=== PATIENT | female | born 1945 | race Caucasian/White ===

== ENCOUNTER 2018-08-01 08:49 | Inpatient (IN) ==
[~2018-08-01 08:49] MED LIST: MORPHINE SULFATE 15 MG TABLET.SA PO PRN; ROPIVACAINE HCL/PF 100 MG, EPINEPHrine 0.2 MG, KETOROLAC TROMETHAMINE 30 MG in NORMAL S... IJ PRN; TRANEXAMIC ACID 1,000 MG in NORMAL SALINE 100 ML IV PRN; ceFAZolin SODIUM 1 GM VIAL IV PRN
[2018-08-01] MEDS: RINGER'S SOLUTION,LACTATED 1,000 ML IV PRN ×4 (09:31→23:05)
--- NOTE | 2018-08-01 09:35 | ANES ---
Anesthesia Pre Procedure Eval Vitals/Labs: Last Vital Signs Temp 36.1 C 08/01/18 09:00 Pulse 89 08/01/18 09:00 Resp 18 08/01/18 09:00 BP 142/73 08/01/18 09:00 Pulse Ox 95 08/01/18 09:00 HOME MEDICATIONS Citalopram Hydrobromide [Celexa] 10 mg PO HS 02/03/13 [Last Taken 07/31/18] Levothyroxine Sodium [Synthroid] 125 mcg PO DAILY 03/13/16 [Last Taken 07/31/18] Nitroglycerin [Nitrostat] 0.4 mg SL [id number] PRN 03/13/16 [Last Taken Unknown] cholecalciferol (vitamin D3) 10,000 unit capsule 10,000 unit PO DAILY 03/07/18 [Last Taken 07/31/18] aspirin 81 mg tablet,delayed release 81 mg PO DAILY 03/10/18 [Last Taken 07/25/18] liraglutide 0.6 mg/0.1 mL (18 mg/3 mL) subcutaneous pen injector 1.8 mg SUB-Q DAILY 03/10/18 [Last Taken 07/31/18] lorazepam 0.5 mg tablet 0.5 mg PO Q4H PRN 03/10/18 [Last Taken 07/30/18] ropinirole 0.5 mg tablet 0.5 mg PO QID tab 03/10/18 [Last Taken 07/31/18] ropinirole 1 mg tablet 1 mg PO TID 03/10/18 [Last Taken 07/31/18] Atorvastatin Calcium [Lipitor] 20 mg PO HS 07/29/18 [Last Taken 07/31/18] Metoprolol Succinate [Toprol Xl] 100 mg PO DAILY 07/29/18 [Last Taken 08/01/18] metFORMIN HCL [Metformin HCl] 500 mg PO DAILY 07/29/18 [Last Taken 07/31/18] Allergies/Adverse Reactions: Allergies Allergy/AdvReac Type Severity Reaction Status Date / Time levofloxacin [From Levaquin] AdvReac Severe Nausea Verified 08/01/18 09:00 simvastatin AdvReac Intermediate pain and Verified 08/01/18 09:00 cramping in legs codeine AdvReac Mild gi upset Verified 08/01/18 09:00 ciprofloxacin AdvReac Unknown unknown Verified 08/01/18 09:00 doxepin AdvReac Unknown unknown Verified 08/01/18 09:00 pioglitazone HCl [From Actos] AdvReac Unknown unknown Verified 08/01/18 09:00 - Planned Procedure Planned Procedure: R total knee Medication List Reviewed:: Yes Allergies Verified: Yes Medical History (Last Reviewed 08/01/18 @ 09:32 by Shoaib Meehan CRNA) Abdominal pain Onset Date: Unknown Arthritis Onset Date: Unknown Asthma Onset Date: Unknown Bronchitis Onset Date: Unknown COPD (chronic obstructive pulmonary disease) Onset Date: 06/02/10 mild- Dr. Donahue Chest pain Onset Date: Unknown Chondromalacia of patella Onset Date: 05/27/12 Cough Onset Date: Unknown Degenerative joint disease of knee Onset Date: 05/11/12 minimally symptomatic Depression Onset Date: Unknown Disc disorder of lumbar region Onset Date: 05/11/12 possible radiculopathy Diverticulitis Onset Date: 07/11/18 Environmental allergies Onset Date: Unknown Fibromyalgia Onset Date: Unknown Frequent infections Onset Date: Unknown Gallstones Onset Date: Unknown Irregular bowel habits Onset Date: Unknown Irregular menstrual periods Onset Date: Unknown Knee pain, right Onset Date: ~2017 Measles Onset Date: Unknown Medial meniscus tear Onset Date: 05/24/12 Mumps Onset Date: Unknown Nervousness Onset Date: Unknown Partial tear of rotator cuff Onset Date: 09/13/12 rt Pes anserine bursitis Onset Date: ~2017 Pneumonia Onset Date: Unknown Sexual dysfunction Onset Date: Unknown Shortness of breath Onset Date: Unknown Stroke Onset Date: 02/2006 possible TIA Tetanus Onset Date: Unknown Trochanteric bursitis, unspecified hip Onset Date: 05/11/12 Ulcer Onset Date: Unknown Surgical History (Last Reviewed 08/01/18 @ 09:32 by Shoaib Meehan CRNA) tail bone removed Cataract extraction status Onset Date: 12/26/12 Dr. Bob Coccygectomy Onset Date: 08/2015 H/O colonoscopy Onset Date: [id number] hyperplastic poly @ transerse colon @ benign hyperplastic polyp @ 30 cm/ -rectal polyp benign hyperplastic polyp & @ 20cm benign polypoid mucosal hyperplasia H/O: hysterectomy Onset Date: 07/1983 History of Bradley fundoplication Onset Date: 12/27/08 History of cholecystectomy Onset Date: 1966 History of esophagogastroduodenoscopy (EGD) Onset Date: 08/29/08 Dr. [id number] chronic inflammation- 07-benign gastric antrum mucosa,benign duodenum mucosa, benign colonic mucosa, 06-mild gastro reflux, benign gastroesophageal tissue, mild chronic antrum gastritis, mild chronic gastritis- also had EGD w/ bx in 11/23 & 10/23 Knee joint replacement status Onset Date: 04/20/16 left-Dr. Stallworth S/P epidural steroid injection Onset Date: 11/01/03 Shoaib Meehan S/P gastric surgery Onset Date: 09/2014 S/P left knee arthroscopy Onset Date: 06/06/12 Family History (Last Reviewed 08/01/18 @ 09:33 by Shoaib Meehan, PRICE ACCURACY SUPERVISOR) Father Suicide Mother Heart disease Sister DVT (deep venous thrombosis), Onset Age: 36 Brother Diabetes Heart disease two brothers with heart disease, one with transplant Sister Blood clotting disorder Lupus - Family Anesthesia History Family History:: no untoward family reactions to anesthesia, no familial bleeding tendencies, no family history of clotting disorders - personal history of nausea, S/P Andres, "cant throw up", no family history of premature - Airway/Neck/Teeth Denture Type: Full upper, Full lower Mallampatti Score: 2 Thyromental (T-M) distance: > 6 cm Mandibulo Hyoid distance: > 3 cm - Respiratory Respiratory History: asthma - no recent issues Respiratory Physical: lungs clear Smoking Status: Never smoker Discussed smoking cessation including day of surgery: No Sleep Apnea currently treated: No Sleep Apnea by current assessment: No - Cardiovascular Cardiac History: arrhythmia - occassional palpitations, CAD, hypertension Tolerate Activity: Fair Heart Sounds: S1 & S2, Regular - Anesthesia Assessment and Plan ASA Class: PS, III Anesthesia Type Plan: Block - for post op pain relief, Spinal Planned difficult intubation/equipment available: No
[2018-08-01] MEDS ORDERED: diphenhydrAMINE HCL 50 MG/ML VIAL IV PRN (12:53)
[2018-08-01] MEDS ORDERED: ZOLPIDEM TARTRATE 5 MG TABLET PO PRN (12:53)
[2018-08-01] MEDS ORDERED: MAGNESIUM HYDROXIDE 30 ML UDC PO PRN (12:53)
[2018-08-01] MEDS ORDERED: oxyCODONE HCL/ACETAMINOPHEN 1 TAB TABLET PO PRN (12:53)
[2018-08-01] MEDS ORDERED: MORPHINE SULFATE 4 MG/ML SYRG IV PRN (12:53)
[2018-08-01] MEDS ORDERED: MAG HYDROX/ALUMINUM HYD/SIMETH 30 ML UDC PO PRN (12:53)
[2018-08-01] MEDS ORDERED: ACETAMINOPHEN 500 MG TABLET PO PRN (12:53)
[2018-08-01] MEDS ORDERED: LORazepam 0.5 MG TABLET PO PRN (12:55)
[2018-08-01] MEDS ORDERED: NITROGLYCERIN 0.4 MG/TAB BTL SL PRN (12:55)
--- NOTE | 2018-08-01 12:58 | OR ---
Operative Report - Dictated Report Narrative: Date: 08/01/2018 Preoperative diagnosis: Right Knee degenerative joint disease. Postoperative diagnosis: Right Knee degenerative joint disease. Procedure: Right Total knee arthroplasty. Surgeon: Arnold Stallworth M.D. Career And Guidance Counselor: Heath Herrera PA-C (provided and essential set of skilled, educated hands that assisted with transfer, positioning, prepping, draping, manipulation, retraction, placement of jigs, injection, insertion of implants, irrigation, closure wounds, and dressings all of which could not be performed by the available surgical crew) Anesthesia: Spinal with regional block and local periarticular joint injection. Complications: None Specimens: Bone for disposal. Estimated blood loss: Minimal. Tourniquet time: 87 Minutes at 350 millimeters of mercury. Retained implants: Depuy Attune size 6 narrow right lugged cemented posterior stabilized femoral component. Size 4 fixed-bearing cemented tibial platform. 6 by 5 millimeter posterior stabilized cross-linked tibial insert. 38 millimeter medialized patella button. Indications: Mrs. Ansari is a 72-year-old female who has had long-standing right knee pain and arthrosis. This patient was followed in my clinic for period of time with significant complaints of right knee pain consistent with arthritic changes. She had failed conservative measures including, but not limited to, activity modification, passage of time, medications, and other conservative measures. Patient wished to proceed with surgical treatment. The risks, benefits, and alternatives were discussed in clinic. The risks of , blood clots, bleeding, infection, nerve/tendon blood vessel/ injury, malposition of components, intraoperative fracture, postoperative limited range of motion, persistent pain, failure of components, and need for additional procedures. Patient wished to proceed consent was obtained after answering all questions. Procedure: After marking the correct extremity on the floor, the patient was taken to the operating room. A timeout was performed. IV antibiotics consisting of Ancef were administered prior to the procedure. A regional followed by spinal anesthetic was induced by anesthesia, per my request, on the operative table with all bony prominences well-padded. Valadez catheter was placed, and a bump was placed under the operative side buttock. SCDs and HAROLDO hose were utilized on the nonoperative leg. A well-padded tourniquet was applied to the operative thigh. The operative leg was then pre-scrubbed with alcohol, prepped, and draped in a standard sterile fashion. After exsanguinating the extremity with an Esmarch bandage, the tourniquet was inflated. After marking out the anterior knee for standard incision centered over the patella, the skin was incised and dissected down to the joint retinaculum. The joint retinaculum was marked out as well as the horizontal axis of the patella, and a standard medial parapatellar arthrotomy was then made. The most proximal aspect of the quadriceps tendon and the patella tendon insertion were protected from release. A partial synovectomy was performed as well as a resection of the infrapatellar fat pad. The distal femoral fat pad proximal to the trochlea was also resected using cautery. The soft tissues were elevated off the medial aspect of the proximal tibia using a Eastman elevator ensuring that we did not transect the medial collateral ligament. Upon initial evaluation range of motion was approximately 0 degrees to 130 degrees of flexion. There were signs of advanced arthrosis in the medial and patellofemoral joint spaces. There were large marginal osteophytes which were removed with a rongeur. The knee was hyperflexed and the patella was tucked laterally. Protecting the surrounding soft tissues with Homans, an entry drill was placed down the femoral canal using Whitesides line for guidance into the entry point. The intramedullary femoral alignment ingrid was utilized in order to cut the distal femur in 5 degrees of valgus resecting 10 millimeters of bone. Next the distal femur was sized to a size 6. A posterior referencing guide was utilized to place the distal femoral cutting block in 3 degrees of external rotation. This was pinned into place. The rotation was confirmed both visually and based on anatomic landmarks. The 4 in 1 cutting jig of the appropriate size was utilized in order to make all bony cuts. The angle wing was used to ensure no notching. Retractors were utilized in order to protect surrounding soft tissues. This cut did not result in any excessive notching. We then cut the box centered over the distal femur. This allowed for resection of the anterior and posterior cruciate ligaments. I then turned my attention to the preparation of the tibia. Using an extra medullary tibial alignment ingrid, 5 millimeters of bone was resected off the medial articular surface. This was made perpendicular to the mechanical axis of the joint with the alignment ingrid centered over the ankle mortise. The alignment ingrid was checked and was noted to be parallel to the mec hanical axis, centered over the medial one third of the tibial tubercle, paralleling the anterior surface of the tibia. We then turned our attention to the remaining meniscus and soft tissues. These were removed while protecting the surrounding ligaments and soft tissues. The marginal osteophytes off the anterior, posterior, medial, lateral aspects of the femur and tibia were removed. The tibia was sized out to a size 4. Next the tibia was drilled and punched in an externally rotated position. Next the trial femur and a series of tibial inserts were utilized in order to allow for full extension and maximal flexion. It was found that a 5 millimeter insert gave the best range of motion and stability at multiple flexion points as well as at full extension there was less than 2 mm of gapping both medially and laterally. There is minimal anterior translation with the knee at 90 degrees of flexion and no signs of being able to dislocate the knee. The patella was then prepared. The initial thickness was 23 millimeters. This was reamed down to 13 millimeters parallel to the anterior surface of the patella. It was sized out to a size 38 medialized patella button. This was then drilled and trialed. Without any medial restraint the patella tracked appropriately and did not sublux or dislocate. At this point, it was felt these were the appropriate sized implants, and all trials were removed. The standard periarticular joint injection consisting of ropivacaine, Toradol, and epinephrine were injected into the periarticular joint tissues. The bony surfaces were thoroughly irrigated with a pulsatile-suction saline irrigation device. A bone plug from the prior resected anterior chamfer cut was placed into the drill hole at the distal femur. The bony surfaces were then dried in preparation for placement of the implants. The cement was vacuum mixed per the logistics administrator's instructions. The cement was placed on the dry bony surfaces and posterior aspect of the implants. The implants were impacted into place, removing all extruded cement. At this point anesthesia administered tranexamic acid per protocol intravenously. The knee was placed in extension with axial loading with the trial insert while the cement cured. Once the cement cured, all remaining extruded cement was removed. The knee was placed through a range of motion with the trial insert to ensure appropriate range of motion and stability. Final range of motion was approximately 0 to 130 degrees. The knee was again thoroughly irrigated with pulsatile saline lavage. The final polyethylene insert was then impacted into place ensuring no retained soft tissues. The remaining periarticular joint injection was injected. A medium Hemovac drain was placed exiting superior laterally. The knee was then placed over a triangle and the arthrotomy was closed with interrupted #1 Vicryl after thoroughly irrigating the joint. The deep and subcutaneous tissues were closed with interrupted 0 and 3-0 Vicryl respectively. Skin was closed with a running subcutaneous 3-0 Monocryl and Prineo Dermabond dressing. 4 x 4's, Sof-Rol, and a full leg Jerome wrap were applied. All sponge, needle, blade, and instrument counts were correct prior to closing the wounds. Postoperative condition: The patient was awoken and transferred to the postanesthesia care unit in stable condition. Plan is to be admitted to the inpatient medical/surgical floor postoperatively for 24 hours of IV antibiotics, physical therapy, occupational therapy, and medical comanagement. Patient will be weightbearing as tolerated with range of motion as tolerated. DVT prophylaxis will be with SCDs, HAROLDO hose, and pharmacological anticoagulation. Anticipated hospital stay is approximately 1-3 days.
--- NOTE | 2018-08-01 13:12 | ANES ---
Anesthesia Procedure Note Procedure Note: ANESTHESIA PROCEDURE NOTE Date of Procedure: 08/01/2018 Time of procedure: 1055. Performed by: Shoaib Meehan CRNA, MSN Secretary Specialist: Destini Braden RN. Preprocedure diagnosis: Post right total knee arthroplasty. Post procedure diagnosis: Same. Procedure: Right Adductor Canal Block. Indications: Post right total knee arthroplasty pain relief. Findings: See below. Details of the procedure: The patient was brought to OR #2 and placed in supine position. The patient's right femoral area to the knee was prepped with chlorhexidine and using ultrasound guidance the right femoral artery wasidentified at approximately the proximal one third femur. Under ultrasound guidance the saphenous nerve was approached with visualization of a 4 inch shielded block needle approaching the adductor canal just under the sartorius muscle. Once saphenous nerve was identified with proximity to the needle tip, the saphenous nerve was surrounded with 20 mL bupivacaine 0.25% with 1-200,000 epinephrine. Please see radiology/ultrasound report for details and retained images of the procedure. EBL: 0 Fluids: N/A. Specimen: N/A. Post procedure condition: The patient tolerated the procedure well. No complications were noted. Thank you for this consultation. Shoaib Meehan CRNA, MSN
--- NOTE | 2018-08-01 13:12 | ANES ---
Post Anesthesia Discharge - Transfer of Care Transfer of Care handoff given to nurse: Yes - Discharge from PACU Discharge from PACU when meets criteria: Yes - Comfortable in PACU.
[2018-08-01] MEDS: rOPINIRole HCL 1 MG TABLET PO SCH ×2 (14:10→16:24)
[2018-08-01] MEDS: rOPINIRole HCL 0.5 MG TABLET PO SCH ×3 (14:10→21:22)
[2018-08-01] MEDS: ceFAZolin SODIUM 1 GM in DEXTROSE 5 % IN WATER 100 ML IV SCH ×4 (14:11→21:18)
[2018-08-01] MEDS: KETOROLAC TROMETHAMINE 15 MG/ML VIAL IV SCH ×2 (14:11→18:56)
[2018-08-01] MEDS ORDERED: MORPHINE SULFATE 2 MG/ML DISP.SYRIN IV PRN (14:15)
[2018-08-01] MEDS: ONDANSETRON HCL/PF 2 MG/ML VIAL IV PRN (15:35)
--- NOTE | 2018-08-01 15:43 | ANES ---
Post Anesthesia Assessment - Vital Signs Vitals: Last Vital Signs Temp 36.8 C 08/01/18 13:44 Pulse 81 08/01/18 15:29 Resp 17 08/01/18 15:29 BP 141/73 08/01/18 15:29 Pulse Ox 96 08/01/18 15:29 Airway Patency: Normal - Mental Status Level Of Consciousness: Awake, Alert, Appropriate - Pain Level Pain Score: 0 - N/V Assessment Nausea/Vomiting Presence: None Dehydration:: No
[2018-08-01] MEDS ORDERED: ROSUVASTATIN CALCIUM 10 MG TABLET PO SCH (21:00)
[2018-08-01] MEDS ORDERED: SENNOSIDES/DOCUSATE SODIUM 1 TAB TABLET PO SCH (21:00)
[2018-08-01] MEDS ORDERED: CITALOPRAM HYDROBROMIDE 10 MG TABLET PO SCH (21:00)
[2018-08-01] MEDS: MORPHINE SULFATE 15 MG TABLET.SA PO SCH (21:15)
[2018-08-02] MEDS: KETOROLAC TROMETHAMINE 15 MG/ML VIAL IV SCH ×3 (01:29→14:05)
[2018-08-02] MEDS: ceFAZolin SODIUM 1 GM in DEXTROSE 5 % IN WATER 100 ML IV SCH ×2 (04:14)
[2018-08-02 05:39] LABS: Hematocrit 35.1 % (37.0-47.0); Hemoglobin 11.3 gm/dL (12.5-16.0); Mean Cell Volume 93.9 fl (78-100); Mean Corpuscular Hemoglobin 30.2 pg (27-31); Mean Corpuscular Hgb Conc 32.2 g/dl (32-36); Mean Platelet Volume 11.1 fl (8-12.5); Platelet Count 211 K/mm3 (150-450); Red Blood Count 3.74 M/mm3 (4.2-5.4); Red Cell Distribution Width 12.1 % (11.5-14.0)
[2018-08-02 05:54] LABS: Anion Gap 11.4 mmol/L (6.8-13.8); BUN/Creatinine Ratio 27.2 (9.0-21.6); Calcium * 8.2 mg/dL (7.9-10.9); Estimated Creat Clear 38.6; Potassium 4.4 mmol/L (3.4-4.6)
[2018-08-02] MEDS ORDERED: LEVOTHYROXINE SODIUM 125 MCG TABLET PO SCH (07:00)
[2018-08-02] MEDS ORDERED: CHOLECALCIFEROL 5,000 UNIT TABLET PO SCH (09:00)
[2018-08-02] MEDS ORDERED: metFORMIN HCL 500 MG TABLET PO SCH (09:00)
[2018-08-02] MEDS ORDERED: METOPROLOL SUCCINATE 100 MG TABLET.SA PO SCH (09:00)
[2018-08-02] MEDS: MORPHINE SULFATE 15 MG TABLET.SA PO SCH (09:16)
[2018-08-02] MEDS: rOPINIRole HCL 1 MG TABLET PO SCH ×2 (09:17→14:05)
[2018-08-02] MEDS: rOPINIRole HCL 0.5 MG TABLET PO SCH ×2 (09:17→14:05)
[2018-08-02] MEDS ORDERED: ENOXAPARIN SODIUM 40 MG/0.4 ML SYRG SC SCH (11:53)
[2018-08-02] MEDS: ONDANSETRON HCL/PF 2 MG/ML VIAL IV PRN (12:10)
--- NOTE | 2018-08-02 12:11 | DS ---
(1) Status post total right knee replacement Problem: Acute (2) Acute blood loss anemia Problem: Acute (3) Anxiety Problem: Chronic (4) Back pain with radiation Problem: Chronic (5) Asthma Problem: Chronic (6) COPD (chronic obstructive pulmonary disease) Problem: Chronic (7) Depression Problem: Chronic (8) Diabetes mellitus Problem: Chronic (9) HLD (hyperlipidemia) Problem: Chronic (10) HTN (hypertension) Problem: Chronic Qualifiers: Description of Stay: Mrs. Ansari was admitted to the floor after undergoing right total knee arthrop lasty. Tolerated this well. Was admitted to the floor postoperatively for 24 hours of IV antibiotics, pain control, medical comanagement, and occupational and physical therapy. OT and PT were consulted to assist with activities of daily living and ambulation. Was made weightbearing as tolerated with range of motion as tolerated. Pain was initially controlled with IV regimen. This was transitioned to oral once tolerating a by mouth intake. Was resumed on home diet and medications. Had a Valadez catheter inserted and the operating room which was discontinued on postoperative day 1. A drain was placed intraoperatively into the knee which was discontinued on postoperative day 1. Lovenox SCD and HAROLDO hose were utilized for DVT prophylaxis. Vital signs remained stable to the hospital course. Serial labs were obtained which showed a final hemoglobin of 11.3 grams. BMP was reviewed and was stable. Physical examination throughout the hospital course showed an extremity that had sensa tion that was intact to light touch, palpable pulses, a benign wound, motor intact to the toes, ankle, and knee. Knee range of motion was approximately 5 degrees to 60 degrees. Once an oral pain regimen was tolerated and physical therapy goals were met, it was felt that they were stable for discharge to home. Instructions: Continue with weightbearing as tolerated and range of motion as tolerated. It is okay to shower and get the wound wet as long as there is no drainage from the wound. Do not bathe or soak the wound. If there is any drainage from the wound keep the wound clean and dry and cover with dry gauze and tape. Change every 2- 3 days as needed if there is any drainage. Cover wound while showering if there is any drainage. Continue with physical therapy. Resume home diet. Report any fever over 101.5 Fahrenheit, uncontrolled pain, increased drainage, foul odor of drainage, new or increased calf pain or shortness of breath, or any other significant complaints. A 325mg dialy aspirin will be started after finishing anticoagulation if not allergic. Continue with HAROLDO hose on the operative extremity until instructed otherwise. No driving until instructed otherwise. Follow up in approximately 10-14 days. Procedures Performed: see notes below List Procedures: Right total knee arthroplasty Results and Findings: Lab Pending Results 08/02/18 05:34: WBC 8.0, RBC 3.74 L, Hgb 11.3 L, Hct 35.1 L, MCV 93.9, MCH 30.2, MCHC 32.2, RDW 12.1, Plt Count 211, MPV 11.1 08/02/18 05:34: Sodium 139, Plasma Sodium 140, Potassium 4.4, Chloride 104, Carbon Dioxide 28.0, Anion Gap 11.4, BUN 28 H, Creatinine 1.03, Est GFR (Non-Af Amer) 56 L, BUN/Creatinine Ratio 27.2 H, Random Glucose 159 H, Calcium 8.2 Disposition: Home self-care Condition: Good Discharge Activity: Activity as tolerated, Weight bearing Referrals: Shahrzad Devries, [employer] [Primary Care Provider] - Additional Patient Instructions (free text): Phyisical Therapy outpatient at [facility] Rehab department on Wednesday08/03/18 @ 12:45 pm. Follow up Orthopedic appointment with Dr Stallworth Naz at 08/23/18 @ 9:45 am. Prescriptions (Any new or edited meds): Enoxaparin Sodium [Lovenox] 40 mg SC Q24H #7 disp.syrin Morphine Sulfate [Ms Contin] 15 mg PO Q12H #14 tablet.sa oxyCODONE HCL/ACETAMINOPHEN [Percocet 5 MG/325 MG] 2 tab PO Q4H PRN #60 tab PRN Reason: Moderate Pain (Pain Scale 4-6) Sennosides/Docusate Sodium [Senokot-S] 2 tab PO HS #60 tab Complete Home Medications List: Complete Home Medication List: Citalopram Hydrobromide [Celexa] 10 mg PO HS 02/03/13 Levothyroxine Sodium [Synthroid] 125 mcg PO DAILY 03/13/16 Nitroglycerin [Nitrostat] 0.4 mg SL [id number] PRN 09/23/16 cholecalciferol (vitamin D3) 10,000 unit capsule 10,000 unit PO DAILY 03/07/18 liraglutide 0.6 mg/0.1 mL (18 mg/3 mL) subcutaneous pen injector 1.8 mg SUB-Q DAILY 03/10/18 lorazepam 0.5 mg tablet 0.5 mg PO Q4H PRN 03/10/18 ropinirole 0.5 mg tablet 0.5 mg PO QID tab 03/10/18 ropinirole 1 mg tablet 1 mg PO TID 03/10/18 Atorvastatin Calcium [Lipitor] 20 mg PO HS 07/29/18 Metoprolol Succinate [Toprol Xl] 100 mg PO DAILY 07/29/18 metFORMIN HCL [Metformin HCl] 500 mg PO DAILY 07/29/18 Calcium Carbonate [Calcium] 500 mg PO DAILY 08/01/18 Docusate Sodium 100 mg PO DAILY PRN 08/01/18 Multivitamin [One-Daily Multi-Vitamin] 1 ea PO DAILY 08/01/18 Enoxaparin Sodium [Lovenox] 40 mg SC Q24H #7 disp.syrin 08/02/18 Morphine Sulfate [Ms Contin] 15 mg PO Q12H #14 tablet.sa 08/02/18 Sennosides/Docusate Sodium [Senokot-S] 2 tab PO HS #60 tab 08/02/18 oxyCODONE HCL/ACETAMINOPHEN [Percocet 5 MG/325 MG] 2 tab PO Q4H PRN #60 tab 08/02/18 Amb Orders for Discharge: PT Evaluation and Treatment* Facility: [facility], Location: Rehabilitation Services
[2018-08-02 14:52] VITALS: BP 143/70
== END 2018-08-02 15:05 | disposition home or self-care (01) | DRG 470 ==
LOC: MS 08:49 → EDSTATUS 10:45
PROVIDERS: ADMIT Orthopaedic Surgery; ATTEND Orthopaedic Surgery
CPT/HCPCS: 36415; 73560; 80048; 85027; 97110; 97116; 97161; 97166; J2405

== ENCOUNTER 2018-10-21 18:30 | Observation (INO) ==
[2018-10-21] MEDS ORDERED: ALBUTEROL SULFATE/IPRATROPIUM 3 ML NEBU IH ONE (18:38)
--- NOTE | 2018-10-21 18:45 | ERNOTE ---
Dyspnea - Date Date of Service: 10/21/18 - General Presenting Symptoms: shortness of breath, difficulty of breathing, wheezing Time Seen by Provider: 10/21/18 18:34 Source: patient Exam Limitations: no limitations - Immun/Allergies/Home Medications Immunizations: IMMUNIZATION HX Immunizations Up to Date Yes History of Influenza Vaccine No Hx Pneumococcal Vaccination No Allergies/Adverse Reactions: Allergies levofloxacin [From Levaquin] Adverse Reaction (Severe, Verified 10/21/18 18:42) Nausea simvastatin Adverse Reaction (Intermediate, Verified 10/21/18 18:42) pain and cramping in legs codeine Adverse Reaction (Mild, Verified 10/21/18 18:42) gi upset ciprofloxacin Adverse Reaction (Unknown, Verified 10/21/18 18:42) unknown patient does not recall doxepin Adverse Reaction (Unknown, Verified 10/21/18 18:42) unknown patient does not recall reaction pioglitazone HCl [From Actos] Adverse Reaction (Unknown, Verified 10/21/18 18:42) unknown patient doesn't recall Home Medications: HOME MEDICATIONS Citalopram Hydrobromide [Celexa] 10 mg PO HS 02/03/13 [Last Taken 07/31/18] Levothyroxine Sodium [Synthroid] 125 mcg PO DAILY 03/13/16 [Last Taken 07/31/18] Nitroglycerin [Nitrostat] 0.4 mg SL [id number] PRN 03/13/16 [Last Taken Unknown] cholecalciferol (vitamin D3) 10,000 unit capsule 10,000 unit PO DAILY 03/07/18 [Last Taken 07/31/18] liraglutide 0.6 mg/0.1 mL (18 mg/3 mL) subcutaneous pen injector 1.8 mg SUB-Q DAILY 03/10/18 [Last Taken 07/31/18] lorazepam 0.5 mg tablet 0.5 mg PO Q4H PRN 03/10/18 [Last Taken 07/30/18] ropinirole 0.5 mg tablet 0.5 mg PO QID tab 03/10/18 [Last Taken 07/31/18] ropinirole 1 mg tablet 1 mg PO TID 03/10/18 [Last Taken 07/31/18] Atorvastatin Calcium [Lipitor] 20 mg PO HS 07/29/18 [Last Taken 07/31/18] Metoprolol Succinate [Toprol Xl] 100 mg PO DAILY 07/29/18 [Last Taken 08/01/18] metFORMIN HCL [Metformin HCl] 500 mg PO DAILY 07/29/18 [Last Taken 07/31/18] Calcium Carbonate [Calcium] 500 mg PO DAILY 08/01/18 [Last Taken Unknown] Multivitamin [One-Daily Multi-Vitamin] 1 ea PO DAILY 08/01/18 [Last Taken Unknown] albuterol sulfate HFA 90 mcg/actuation aerosol inhaler 2 puff INHALATION Q6H PRN #8.5 g 10/20/18 [Last Taken Unknown] azithromycin 250 mg tablet See Rx Instructions PO .COMPLEX #6 tab 10/20/18 [Last Taken Unknown] compressor, for nebulizer See Dose Instructions .ROUTE .MEDSUPPLY #1 ea 10/20/18 [Last Taken Unknown] ipratropium-albuterol 0.5 mg-3 mg(2.5 mg base)/3 mL nebulization soln 3 ml IH QID PRN #90 ml 10/20/18 [Last Taken 10/21/18 17:30] nebulizer accessories [facility] See Dose Instructions .ROUTE .MEDSUPPLY #1 ea 10/20/18 [Last Taken Unknown] traMADol HCL [Tramadol HCl] 1 - 2 tab PO Q12H PRN 10/21/18 [Last Taken Unknown] traMADol HCL [Tramadol HCl] 1 - 2 tab PO Q8H PRN 10/21/18 [Last Taken Unknown] - Pain Score Pain Score #1 Pain Score: 4 - History of Present Illness Narrative: The patient is a 73 year old female who presents for dyspnea which has been present for 3 days. There are associated symptoms of diffuse anterior chest discomfort, fever and productive cough. The patient reports anterior chest pain, 4/10. There are no alleviating factors. There are aggravating factors. Previous treatments have included: Duoneb and Z-Peng without improvement. The past medical history includes: HTN, COPD, depression, HLD, asthma, DM, anxiety, arthritis, fibromyalgia and TIA. The social history is positive for former smoker. The patient has had no ill contacts. Patient was seen at [facility] yesterday and started on ZPak for bilateral pneumonia with clinical dx. Patient states that symptoms have not improved with prescribed treatment. Review of Systems - Review of Systems Constitutional: Present: fever, fatigue, malaise EYE: Present: no symptoms reported ENT: Present: no symptoms reported. Absent: ear pain, nasal drainage, sore throat Respiratory: Present: shortness of breath, cough, wheezing Cardiology: Present: chest pain Gastrointestinal/Abdominal: Present: nausea, diarrhea, eating less. Absent: vomiting, abdominal pain, drinking less Genitourinary: Present: no symptoms reported. Absent: dysuria, decreased urinary output Musculoskeletal: Present: no symptoms reported Skin: Present: no symptoms reported. Absent: rash All Other Systems: All systems neg except as marked Medical History (Updated 10/20/18 @ 17:12 by Love Sherman LPN) HTN (hypertension) (Chronic) COPD (chronic obstructive pulmonary disease) (Chronic) Depression (Chronic) HLD (hyperlipidemia) (Chronic) Asthma (Chronic) Diabetes mellitus (Chronic) Diverticulitis large intestine (Acute) Anxiety (Chronic) Back pain with radiation (Chronic) Diabetic acidosis, type II (Acute) Abdominal pain Onset Date: Unknown Arthritis Onset Date: Unknown Asthma Onset Date: Unknown Bronchitis Onset Date: Unknown COPD (chronic obstructive pulmonary disease) Onset Date: 06/02/10 dago- Dr. Donahue Chest pain Onset Date: Unknown Chondromalacia of patella Onset Date: 05/27/12 Cough Onset Date: Unknown Degenerative joint disease of knee Onset Date: 05/11/12 minimally symptomatic Depression Onset Date: Unknown Diabetes Disc disorder of lumbar region Onset Date: 05/11/12 possible radiculopathy Diverticulitis Onset Date: 07/11/18 Environmental allergies Onset Date: Unknown Fibromyalgia Onset Date: Unknown Frequent infections Onset Date: Unknown Gallstones Onset Date: Unknown Irregular bowel habits Onset Date: Unknown Irregular menstrual periods Onset Date: Unknown Knee pain, right Onset Date: ~2017 Measles Onset Date: Unknown Medial meniscus tear Onset Date: 05/24/12 Mumps Onset Date: Unknown Nervousness Onset Date: Unknown Partial tear of rotator cuff Onset Date: 09/13/12 rt Pes anserine bursitis Onset Date: ~2018 Pneumonia Onset Date: Unknown Sexual dysfunction Onset Date: Unknown Shortness of breath Onset Date: Unknown Stroke Onset Date: 02/2006 possible TIA Tetanus Onset Date: Unknown Trochanteric bursitis, unspecified hip Onset Date: 05/11/12 Ulcer Onset Date: Unknown Surgical History: Surgical History (Updated 10/20/18 @ 17:12 by Love Sherman LPN) Status post total left knee replacement (Acute) Status post total right knee replacement (Chronic) [place] 08/01/18 Cataract extraction status Onset Date: 12/26/12 Dr. Bob Coccygectomy Onset Date: 08/2015 H/O colonoscopy Onset Date: 2010 [id number] hyperplastic poly @ transerse colon @ benign hyperplastic polyp @ 30 cm/ 07-rectal polyp benign hyperplastic polyp & @ 20cm benign po lypoid mucosal hyperplasia H/O: hysterectomy Onset Date: 07/1983 History of Bradley fundoplication Onset Date: 12/27/08 History of cholecystectomy Onset Date: 1966 History of esophagogastroduodenoscopy (EGD) Onset Date: 08/29/08 Dr. [id number] chronic inflammation- 07-benign gastric antrum mucosa,benign duodenum mucosa, benign colonic mucosa, 06-mild gastro reflux, benign gastroesophageal tissue, mild chronic antrum gastritis, mild chronic gastritis- also had EGD w/ bx in 11/23 & 10/23 Knee joint replacement status Onset Date: 04/20/16 left-Dr. Stallworth S/P epidural steroid injection Onset Date: 11/01/03 Shoaib Mee[place] S/P gastric surgery Onset Date: 09/2014 S/P left knee arthroscopy Onset Date: 06/06/12 tail bone removed History of total knee arthroplasty Onset Date: ~08/01/18 right: Dr. Stallworth Family History: Family History (Updated 07/29/18 @ 09:41 by Lilian Garcia RN) Father Suicide Mother Heart disease Sister DVT (deep venous thrombosis), Onset Age: 36 Brother Heart disease two brothers with heart disease, one with transplant Diabetes Sister Lupus Blood clotting disorder Social History: Preferred Language Wallisian Smoking Status Never smoker Abuse History No History of abuse Psych History No pertinent hx (Last Updated 10/20/18 @ 18:02 by Jaenlle Erickson DNP) No Social History Section defined Physical Exam - Physical Exam General Appearance: Present: wd/wn, alert, moderate distress, crying - tearful, other - malaise Head Exam: Present: normal inspection Eye Exam: Normal inspection: bilateral Neck: Present: normal inspection Respiratory: Present: respiratory distress - mild, decreased breath sounds, rhonchi - diffuse, wheezing - diffuse expiratory Cardiovascular/Chest: Present: no murmur, tachycardia Gastrointestinal/Abdominal: Present: normal bowel sounds, nontender, nondistended, soft, no organomegaly Extremity Exam: Present: no edema Neurological Exam: Present: alert, oriented, normal mood/affect Skin Exam: Present: normal color, warm/dry Progress - Date and Time Seen: Date and Time: 10/21/18 20:13 Discussed case with and will admit for observation for COPD exacerbation with tachycardia, dyspnea and confusion. Family states that patient has been asking inappropriate questions and disoriented to situation at times. Will administer Azithromycin 250mg po now since patient took dose of 250mg this am. - Results and Orders Patient's Lab Results:: I have reviewed the patient's lab results. - Vital Signs Patient's Vital Signs:: I have reviewed the patient's vital signs. - EKG EKG #1 EKG: NSR EKG read: Reviewed by me - CT/Ultrasound CT/Ultrasound Narrative: Real Radiology: CTA Chest: Multifocal discoid atelectasis Negative for central PE Departure Clinical Impression: COPD with exacerbation Altered mental status Qualifiers: Altered mental status type: unspecified Qualified Code(s): R41.82 - Altered mental status, unspecified - Departure Disposition: Still a patient Condition: Fair
[2018-10-21] MEDS ORDERED: METHYLPREDNISOLONE SOD SUCC/PF 125 MG/2 ML VIAL IV ONE (18:54)
[2018-10-21 18:59] LABS: Hemoglobin 13.4 gm/dL (12.5-16.0); Mean Cell Volume 90.7 fl (78-100); Mean Corpuscular Hemoglobin 28.9 pg (27-31); Mean Corpuscular Hgb Conc 31.9 g/dl (32-36); Mean Platelet Volume 10.9 fl (8-12.5); Neutrophil # 4.1 K/mm3 (1.3-6.0); Platelet Count 282 K/mm3 (150-450); Red Blood Count 4.63 M/mm3 (4.2-5.4); Red Cell Distribution Width 12.4 % (11.5-14.0); White Blood Count 7.6 K/mm3 (4.0-10.5)
[2018-10-21 19:20] LABS: Albumin * 3.1 gm/dl (3.4-5.0); Anion Gap 14.6 mmol/L (6.8-13.8); BUN/Creatinine Ratio 18.1 (9.0-21.6); Bilirubin, Total 0.4 mg/dL (0.0-1.1); Ca. Corrected For Albumin 9.9 mg/dL (8.4-10.2); Calcium * 9.5 mg/dL (7.9-10.9); Carbon Dioxide 26.1 mmol/L (24-32.6); Potassium 3.7 mmol/L (3.4-4.6); Total Protein 7.7 gm/dL (6.2-8.2); Troponin I 0.027 ng/mL (0.00-0.10)
[2018-10-21] MEDS ORDERED: cefTRIAXone SODIUM 1,000 MG/100 ML BAG IV ONE (20:19)
[2018-10-21] MEDS ORDERED: AZITHROMYCIN 250 MG TABLET PO ONE (20:19)
[2018-10-21] MEDS ORDERED: NORMAL SALINE 500 ML IV PRN (20:27)
--- NOTE | 2018-10-21 23:43 | HP ---
Chief Complaint - Chief Complaint Date of Service: 10/21/18 Time of Service: 23:36 Chief Complaint: Worn out History of Present Illness: Margy is a 73 yo female that presented to the [facility] ER with shortness of breath and the general feeling of wearing out. She has known COPD. No recent ravel, sick contacts, or changes in medication. No fever, chills, recent antibiotics, or chest pain. Medical History (Updated 10/21/18 @ 23:43 by Ihsan Méndez DO) HTN (hypertension) (Chronic) COPD (chronic obstructive pulmonary disease) (Chronic) Depression (Chronic) HLD (hyperlipidemia) (Chronic) Asthma (Chronic) Diabetes mellitus (Chronic) Diverticulitis large intestine (Acute) Anxiety (Chronic) Back pain with radiation (Chronic) Diabetic acidosis, type II (Acute) Abdominal pain Onset Date: Unknown Arthritis Onset Date: Unknown Asthma Onset Date: Unknown Bronchitis Onset Date: Unknown COPD (chronic obstructive pulmonary disease) Onset Date: 06/02/10 mild- Dr. Donahue Chest pain Onset Date: Unknown Chondromalacia of patella Onset Date: 05/27/12 Cough Onset Date: Unknown Degenerative joint disease of knee Onset Date: 05/11/12 minimally symptomatic Depression Onset Date: Unknown Diabetes Disc disorder of lumbar region Onset Date: 05/11/12 possible radiculopathy Diverticulitis Onset Date: 07/11/18 Environmental allergies Onset Date: Unknown Fibromyalgia Onset Date: Unknown Frequent infections Onset Date: Unknown Gallstones Onset Date: Unknown Irregular bowel habits Onset Date: Unknown Irregular menstrual periods Onset Date: Unknown Knee pain, right Onset Date: ~2017 Measles Onset Date: Unknown Medial meniscus tear Onset Date: 05/24/12 Mumps Onset Date: Unknown Nervousness Onset Date: Unknown Partial tear of rotator cuff Onset Date: 09/13/12 rt Pes anserine bursitis Onset Date: ~2018 Pneumonia Onset Date: Unknown Sexual dysfunction Onset Date: Unknown Shortness of breath Onset Date: Unknown Stroke Onset Date: 02/2006 possible TIA Tetanus Onset Date: Unknown Trochanteric bursitis, unspecified hip Onset Date: 05/11/12 Ulcer Onset Date: Unknown Surgical History: Surgical History (Updated 10/21/18 @ 23:43 by Ihsan Méndez DO) Status post total left knee replacement (Acute) Status post total right knee replacement (Chronic) [place] 08/01/18 Cataract extraction status Onset Date: 12/26/12 Dr. Bbo Coccygectomy Onset Date: 08/2015 H/O colonoscopy Onset Date: 2010 [id number] hyperplastic poly @ transerse colon @ benign hyperplastic polyp @ 30 cm/ 07-rectal polyp benign hyperplastic polyp & @ 20cm benign polypoid mucosal hyperplasia H/O: hysterectomy Onset Date: 07/1983 History of Bradley fundoplication Onset Date: 12/27/08 History of cholecystectomy Onset Date: 1966 History of esophagogastroduodenoscopy (EGD) Onset Date: 08/29/08 Dr. [id number] chronic inflammation- 07-benign gastric antrum mucosa,benign duodenum mucosa, benign colonic mucosa, 06-mild gastro reflux, benign gastroesophageal tissue, mild chronic antrum gastritis, mild chronic gastritis- also had EGD w/ bx in 11/23 & 10/23 Knee joint replacement status Onset Date: 04/20/16 left-Dr. Stallworth S/P epidural steroid injection Onset Date: 11/01/03 Shoaib [place] S/P gastric surgery Onset Date: 09/2014 S/P left knee arthroscopy Onset Date: 06/06/12 tail bone removed History of total knee arthroplasty Onset Date: ~08/01/18 right: Dr. Stallworth Family History: Family History (Updated 07/29/18 @ 09:41 by Lilian Garcia RN) Father Suicide Mother Heart disease Sister DVT (deep venous thrombosis), Onset Age: 36 Brother Diabetes Heart disease two brothers with heart disease, one with transplant Sister Blood clotting disorder Lupus Social History: Patient Lives/Resources With Spouse Utilized Occupation retired from bank Preferred Language Nepali Do you have any yazidism or Yes: Latter Day cultural preference? Smoking Status Former smoker Have you smoked in the past 12 No months Do you dip or chew tobacco No Abuse History No History of abuse Psych History No pertinent hx Alcohol Use none Drug Use none (Last Updated 10/20/18 @ 18:02 by Janelle Erickson DNP) No Social History Section defined Review Of Systems (GEN) - Review of Systems Generalized/Overall Review: Present: Weakness. Absent: Chills, Fever Respiratory: Present: Cough, Shortness of Breath Cardiac: Absent: Chest Pain, Edema, Palpitations Abdominal: Absent: Nausea, Vomiting Genitourinary: Present: No Symptoms Reported Musculoskeletal: Present: No Symptoms Reported Neurological: Present: No Symptoms Reported Skin: Present: No Symptoms Reported Endocrine: Present: No Symptoms Reported Immunizations: IMMUNIZATION HX Immunizations Up to Date Yes History of Influenza Vaccine No Hx Pneumococcal Vaccination No Allergies/Adverse Reactions: Allergies Allergy/AdvReac Type Severity Reaction Status Date / Time levofloxacin [From Levaquin] AdvReac Severe Nausea Verified 10/21/18 18:42 simvastatin AdvReac Intermediate pain and Verified 10/21/18 18:42 cramping in legs codeine AdvReac Mild gi upset Verified 10/21/18 18:42 ciprofloxacin AdvReac Unknown unknown Verified 10/21/18 18:42 doxepin AdvReac Unknown unknown Verified 10/21/18 18:42 pioglitazone HCl [From Actos] AdvReac Unknown unknown Verified 10/21/18 18:42 Home Medications: HOME MEDICATIONS Citalopram Hydrobromide [Celexa] 10 mg PO HS 02/03/13 [Last Taken 10/20/18 21:00] Levothyroxine Sodium [Synthroid] 125 mcg PO DAILY 03/13/16 [Last Taken 07/31/18] Nitroglycerin [Nitrostat] 0.4 mg SL [id number] PRN 03/13/16 [Last Taken Unknown] cholecalciferol (vitamin D3) 10,000 unit capsule 1,000 unit PO DAILY 03/07/18 [Last Taken 07/31/18] liraglutide 0.6 mg/0.1 mL (18 mg/3 mL) subcutaneous pen injector 1.8 mg SUB-Q DAILY 03/10/18 [Last Taken 07/31/18] lorazepam 0.5 mg tablet 0.5 mg PO Q4H PRN 03/10/18 [Last Taken 10/20/18 21:00] ropinirole 0.5 mg tablet 0.5 mg PO QID PRN tab 03/10/18 [Last Taken 07/31/18] ropinirole 1 mg tablet 1 mg PO TID PRN 03/10/18 [Last Taken 07/31/18] Atorvastatin Calcium [Lipitor] 20 mg PO HS 07/29/18 [Last Taken 07/31/18] Metoprolol Succinate [Toprol Xl] 100 mg PO DAILY 07/29/18 [Last Taken 08/01/18] metFORMIN HCL [Metformin HCl] 500 mg PO DAILY 07/29/18 [Last Taken 10/20/18 09:00] Calcium Carbonate [Calcium] 500 mg PO DAILY 08/01/18 [Last Taken Unknown] Multivitamin [One-Daily Multi-Vitamin] 1 ea PO DAILY 08/01/18 [Last Taken Unknown] albuterol sulfate HFA 90 mcg/actuation aerosol inhaler 2 puff INHALATION Q6H PRN #8.5 g 10/20/18 [Last Taken Unknown] azithromycin 250 mg tablet See Rx Instructions PO .COMPLEX #6 tab 10/20/18 [Last Taken Unknown] compressor, for nebulizer See Dose Instructions .ROUTE .MEDSUPPLY #1 ea 10/20/18 [Last Taken Unknown] ipratropium-albuterol 0.5 mg-3 mg(2.5 mg base)/3 mL nebulization soln 3 ml IH QID PRN #90 ml 10/20/18 [Last Taken 10/21/18 17:30] nebulizer accessories misc See Dose Instructions .ROUTE .MEDSUPPLY #1 ea 10/20/18 [Last Taken Unknown] traMADol HCL [Tramadol HCl] 1 - 2 tab PO Q4H PRN 10/21/18 [Last Taken 10/20/18 21:00] Azithromycin [Zithromax] 250 mg PO DAILY #4 tab 10/22/18 [Last Taken Unknown] predniSONE [Prednisone] 60 mg PO DAILY #18 tab 10/22/18 [Last Taken Unknown] Exam - Exam Vital Signs: Vital Signs - Last Taken Temp 36.8 C 10/21/18 22:43 Pulse 93 10/21/18 22:43 Resp 22 H 10/21/18 22:43 BP 158/66 H 10/21/18 22:43 Pulse Ox 94 10/21/18 22:43 Constitutional: Present: Alert, Oriented x3, Cooperative ENT Exam: Present: hearing grossly normal Eye Exam: bilateral eye: normal inspection Respiratory: Present: decreased breath sounds, wheezing Cardiovascular/Chest: Present: regular rate, rhythm, no murmur Abdomen: Present: Normal bowel sounds, soft, nontender, nondistended Extremity: Present: normal inspection Skin Exam: Present: normal color, warm/dry, no cyanosis Lymphatic: Present: no adenopathy Neurologic: Present: no motor/sensory deficits, alert, normal mood/affect Appearance: Present: appropriate appearance, appropriate insight Diagnostic Studies: Abnormal Lab Results 10/21/18 10/21/18 10/21/18 Range/Units 18:52 18:52 18:52 MCHC 31.9 L (32-36) g/dl Eosinophils % 6.1 H (0.0-3.0) % D-Dimer 1.89 H (0.19-0.49) ug/mL Anion Gap 14.6 H (6.8-13.8) mmol/L Est GFR (Non-Af Amer) 55 L (60-130) mL/min Random Glucose 284 H (70-110) mg/dL Albumin 3.1 L (3.4-5.0) gm/dl Laboratory Results WBC 7.6 K/mm3 (4.0-10.5) 10/21/18 18:52 RBC 4.63 M/mm3 (4.2-5.4) 10/21/18 18:52 Hgb 13.4 gm/dL (12.5-16.0) 10/21/18 18:52 Hct 42.0 % (37.0-47.0) 10/21/18 18:52 MCV 90.7 fl (78-100) 10/21/18 18:52 MCH 28.9 pg (27-31) 10/21/18 18:52 MCHC 31.9 g/dl (32-36) L 10/21/18 18:52 RDW 12.4 % (11.5-14.0) 10/21/18 18:52 Plt Count 282 K/mm3 (150-450) 10/21/18 18:52 MPV 10.9 fl (8-12.5) 10/21/18 18:52 Immature Gran % (Auto) 0.30 % (0.001-0.429) 10/21/18 18:52 Immature Gran # (Auto) 0.02 K/mm3 (0.000-0.0310) 10/21/18 18:52 54.0 % (42-75.0) 10/21/18 18:52 31.0 % (20-51) 10/21/18 18:52 7.9 % (0.0-9) 10/21/18 18:52 6.1 % (0.0-3.0) H 10/21/18 18:52 0.7 % (0.0-1.0) 10/21/18 18:52 Nucleated RBC % 0.0 k/mm3 (0-1) 10/21/18 18:52 4.1 K/mm3 (1.3-6.0) 10/21/18 18:52 2.34 k/mm3 (1.5-3.5) 10/21/18 18:52 0.6 k/mm3 (0.0-1.0) 10/21/18 18:52 0.5 k/mm3 (0.0-0.7) 10/21/18 18:52 Absolute Basophils 0.1 k/mm3 (0.0-0.1) 10/21/18 18:52 1.89 ug/mL (0.19-0.49) H 10/21/18 18:52 Sodium 137 mmol/L (132-142) 10/21/18 18:52 140 mmol/L (130-142) 10/21/18 18:52 Potassium 3.7 mmol/L (3.4-4.6) 10/21/18 18:52 Chloride 100 mmol/L (97-106) 10/21/18 18:52 Carbon Dioxide 26.1 mmol/L (24-32.6) 10/21/18 18:52 14.6 mmol/L (6.8-13.8) H 10/21/18 18:52 BUN 19 mg/dL (3-23) 10/21/18 18:52 1.05 mg/dL (0.4-1.4) 10/21/18 18:52 Est GFR (Non-Af Amer) 55 mL/min (60-130) L 10/21/18 18:52 18.1 (9.0-21.6) 10/21/18 18:52 284 mg/dL (70-110) H 10/21/18 18:52 1.4 mmol/L (0.4-2.0) 10/21/18 18:52 Calcium 9.5 mg/dL (7.9-10.9) 10/21/18 18:52 Calcium Adj for Albumin 9.9 mg/dL (8.4-10.2) 10/21/18 18:52 0.4 mg/dL (0.0-1.1) 10/21/18 18:52 AST 17 U/L (0-48) 10/21/18 18:52 ALT 22 U/L (19-67) 10/21/18 18:52 113 U/L (50-170) 10/21/18 18:52 0.027 ng/mL (0.00-0.10) 10/21/18 18:52 B-Natriuretic Peptide 60 pg/mL (5-325) 10/21/18 18:52 7.7 gm/dL (6.2-8.2) 10/21/18 18:52 3.1 gm/dl (3.4-5.0) L 10/21/18 18:52 Assessment/Plan - Assessment/Plan (1) COPD with exacerbation Assessment: Margy is a 73 yo female with COPD exacerbation and significant fatigue. As she is feeling worn out will admit to observation to monitor against hypoxia. At this time there is none. Will treat with steroids, nebulizer therapy, azithromycin, rocephin, and monitor O2 status. If improved tomorrow will plan to discharge to home. Problem: Acute
[2018-10-21] MEDS ORDERED: rOPINIRole HCL 0.5 MG TABLET PO PRN (23:47)
[2018-10-21] MEDS ORDERED: traMADol HCL 50 MG TABLET PO PRN (23:47)
[2018-10-21] MEDS ORDERED: rOPINIRole HCL 1 MG TABLET PO SCH (23:51)
[2018-10-22] MEDS: LORazepam 0.5 MG TABLET PO PRN ×2 (00:06→07:15)
[2018-10-22] MEDS: ALBUTEROL SULFATE/IPRATROPIUM 3 ML NEBU IH PRN ×2 (01:11→06:04)
[2018-10-22] MEDS: rOPINIRole HCL 1 MG TABLET PO SCH ×4 (01:12→16:56)
[2018-10-22] MEDS ORDERED: LEVOTHYROXINE SODIUM 125 MCG TABLET PO SCH (07:00)
[2018-10-22] MEDS ORDERED: traMADol HCL 50 MG TABLET PO PRN (07:15)
[2018-10-22] MEDS ORDERED: LEVOTHYROXINE SODIUM 25 MCG TABLET ONE (07:29)
[2018-10-22] MEDS ORDERED: LEVOTHYROXINE SODIUM 100 MCG TABLET ONE (07:29)
[2018-10-22] MEDS ORDERED: METOPROLOL SUCCINATE 100 MG TABLET.SA PO SCH (09:00)
[2018-10-22] MEDS ORDERED: AZITHROMYCIN 250 MG TABLET PO SCH (09:00)
[2018-10-22] MEDS ORDERED: CALCIUM CARBONATE/VITAMIN D3 1 TAB TABLET PO SCH (09:00)
[2018-10-22] MEDS ORDERED: predniSONE 20 MG TABLET PO SCH (09:00)
[2018-10-22] MEDS ORDERED: MULTIVITAMINS 1 CAP CAPSULE PO SCH (09:00)
[2018-10-22 10:55] LABS: Hematocrit 38.5 % (37.0-47.0); Hemoglobin 12.3 gm/dL (12.5-16.0); Mean Cell Volume 90.2 fl (78-100); Mean Corpuscular Hemoglobin 28.8 pg (27-31); Mean Corpuscular Hgb Conc 31.9 g/dl (32-36); Mean Platelet Volume 11.5 fl (8-12.5); Neutrophil % 87.1 % (42-75.0); Platelet Count 261 K/mm3 (150-450); Red Blood Count 4.27 M/mm3 (4.2-5.4); Red Cell Distribution Width 12.3 % (11.5-14.0); White Blood Count 9.1 K/mm3 (4.0-10.5)
[2018-10-22 11:23] LABS: Albumin * 2.8 gm/dl (3.4-5.0); Anion Gap 16.3 mmol/L (6.8-13.8); BUN/Creatinine Ratio 17.6 (9.0-21.6); Bilirubin, Total 0.3 mg/dL (0.0-1.1); Ca. Corrected For Albumin 9.5 mg/dL (8.4-10.2); Calcium * 8.9 mg/dL (7.9-10.9); Carbon Dioxide 23.1 mmol/L (24-32.6); Potassium 4.4 mmol/L (3.4-4.6); Total Protein 6.9 gm/dL (6.2-8.2)
[2018-10-22] MEDS ORDERED: INSULIN LISPRO 100 UNITS/ML VIAL SC STA (11:33)
[2018-10-22] MEDS ORDERED: Liraglutide [Victoza 2-Pak] 1.8 MG Sub-Q SCH (12:00)
[2018-10-22] MEDS ORDERED: CHOLECALCIFEROL 1,000 UNIT CAPSULE PO SCH (12:00)
[2018-10-22] MEDS ORDERED: INSULIN LISPRO 100 UNITS/ML VIAL SC SCH (17:00)
--- NOTE | 2018-10-22 17:46 | DS ---
(1) COPD with exacerbation Problem: Acute Description of Stay: Margy is a 73 yo admitted to observation for dyspnea and presumed COPD exacerbation. She was treated with nebulizer, steroid, rocephin, and azithromycin and improved. She ambulated in the [place] today, she had no episodes of hypoxia, and she is feeling well enough for home discharge. Will continue steroid taper and azithromycin. Procedures Performed: none Results and Findings: Lab Pending Results 10/21/18 18:52: WBC 7.6, RBC 4.63, Hgb 13.4, Hct 42.0, MCV 90.7, MCH 28.9, MCHC 31.9 L, RDW 12.4, Plt Count 282, MPV 10.9, Immature Gran % (Auto) 0.30, Immature Gran # (Auto) 0.02, Neutrophils % 54.0, Lymphocytes % 31.0, Monocytes % 7.9, Eosinophils % 6.1 H, Basophils % 0.7, Nucleated RBC % 0.0, Neutrophils # 4.1, Lymphocytes # 2.34, Monocytes # 0.6, Eosinophils # 0.5, Absolute Basophils 0.1 10/21/18 18:52: Sodium 137, Plasma Sodium 140, Potassium 3.7, Chloride 100, Carbon Dioxide 26.1, Anion Gap 14.6 H, BUN 19, Creatinine 1.05, Est GFR (Non-Af Amer) 55 L, BUN/Creatinine Ratio 18.1, Random Glucose 284 H, Calcium 9.5, Calcium Adj for Albumin 9.9, Total Bilirubin 0.4, AST 17, ALT 22, Alkaline Phosphatase 113, Troponin I 0.027, B-Natriuretic Peptide 60, Total Protein 7.7, Albumin 3.1 L 10/21/18 18:52: D-Dimer 1.89 H 10/21/18 18:52: Lactic Acid, Venous 1.4 10/22/18 10:13: WBC 9.1, RBC 4.27, Hgb 12.3 L, Hct 38.5, MCV 90.2, MCH 28.8, MCHC 31.9 L, RDW 12.3, Plt Count 261, MPV 11.5, Immature Gran % (Auto) 0.40, Immature Gran # (Auto) 0.04 H, Neutrophils % 87.1 H, Lymphocytes % 10.2 L, Monocytes % 2.2, Eosinophils % 0.0, Basophils % 0.1, Nucleated RBC % 0.0, Neutrophils # 8.0 H, Lymphocytes # 0.93 L, Monocytes # 0.2, Eosinophils # 0.0, Absolute Basophils 0.0 10/22/18 10:13: Sodium 133, Plasma Sodium 140, Potassium 4.4, Chloride 98, Carbon Dioxide 23.1 L, Anion Gap 16.3 H, BUN 19, Creatinine 1.08, Est GFR (Non- Af Amer) 53 L, BUN/Creatinine Ratio 17.6, Random Glucose 543 H* D, Calcium 8.9, Calcium Adj for Albumin 9.5, Total Bilirubin 0.3, AST 9, ALT 21, Alkaline Phosphatase 101, Total Protein 6.9, Albumin 2.8 L Discharge Location: Home Disposition: Home self-care Condition: Fair Discharge Activity: Activity as tolerated Discharge Diet: Consistent carbs Referrals: Shahrzad Devries CNP [Primary Care Provider] - One Week Problem Oriented Discharge Instructions to Patient/Family: Chronic Obstructive Pulmonary Disease Exacerbation, [id number] Prescriptions (Any new or edited meds): predniSONE [Prednisone] 60 mg PO DAILY #18 tab Azithromycin [Zithromax] 250 mg PO DAILY #4 tab Complete Home Medications List: Complete Home Medication List: Citalopram Hydrobromide [Celexa] 10 mg PO HS 02/03/13 Levothyroxine Sodium [Synthroid] 125 mcg PO DAILY 03/13/16 Nitroglycerin [Nitrostat] 0.4 mg SL [id number] PRN 03/13/16 cholecalciferol (vitamin D3) 10,000 unit capsule 1,000 unit PO DAILY 03/07/18 liraglutide 0.6 mg/0.1 mL (18 mg/3 mL) subcutaneous pen injector 1.8 mg SUB-Q DAILY 03/10/18 lorazepam 0.5 mg tablet 0.5 mg PO Q4H PRN 03/10/18 ropinirole 0.5 mg tablet 0.5 mg PO QID PRN tab 03/10/18 ropinirole 1 mg tablet 1 mg PO TID PRN 03/10/18 Atorvastatin Calcium [Lipitor] 20 mg PO HS 07/29/18 Metoprolol Succinate [Toprol Xl] 100 mg PO DAILY 07/29/18 metFORMIN HCL [Metformin HCl] 500 mg PO DAILY 07/29/18 Calcium Carbonate [Calcium] 500 mg PO DAILY 08/01/18 Multivitamin [One-Daily Multi-Vitamin] 1 ea PO DAILY 08/01/18 albuterol sulfate HFA 90 mcg/actuation aerosol inhaler 2 puff INHALATION Q6H PRN #8.5 g 10/20/18 azithromycin 250 mg tablet See Rx Instructions PO .COMPLEX #6 tab 10/20/18 compressor, for nebulizer See Dose Instructions .ROUTE .MEDSUPPLY #1 ea 10/20/18 ipratropium-albuterol 0.5 mg-3 mg(2.5 mg base)/3 mL nebulization soln 3 ml IH QID PRN #90 ml 10/20/18 nebulizer accessories misc See Dose Instructions .ROUTE .MEDSUPPLY #1 ea 10/20/18 traMADol HCL [Tramadol HCl] 1 - 2 tab PO Q4H PRN 10/21/18 Azithromycin [Zithromax] 250 mg PO DAILY #4 tab 10/22/18 predniSONE [Prednisone] 60 mg PO DAILY #18 tab 10/22/18
[2018-10-22 18:33] VITALS: BP 150/72
[2018-10-22] MEDS ORDERED: ROSUVASTATIN CALCIUM 10 MG TABLET PO SCH (21:00)
[2018-10-22] MEDS ORDERED: CITALOPRAM HYDROBROMIDE 10 MG TABLET PO SCH (21:00)
== END 2018-10-22 18:33 | disposition home or self-care (01) ==
LOC: ER 18:30 → MS 18:30
PROVIDERS: ADMIT Family Medicine; ATTEND Family Medicine
DX: J44.1 Chronic obstructive pulmonary disease with (acute) exacerbation
CPT/HCPCS: 36415; 71275; 80053; 83519; 83605; 83880; 84484; 85025; 85379; 87040; 93005; 94640; 94664; 94760; 96365; 96372; 96375; 99285; G0378; Q9967

== ENCOUNTER 2019-12-04 06:30 | Inpatient (IN) ==
[~2019-12-04 06:30] MED LIST changes: +ISOPROPYL ALCOHOL 480 APPL BTL MC ONE
[2019-12-04] MEDS ORDERED: BUPIVACAINE HCL/EPINEPHRINE/PF 30 ML VIAL IJ ONE (06:45)
[2019-12-04] MEDS ORDERED: MIDAZOLAM HCL/PF 1 MG/ML VIAL ONE ×2 (06:45→07:26)
[2019-12-04] MEDS ORDERED: ONDANSETRON HCL/PF 2 MG/ML VIAL ONE (06:45)
[2019-12-04] MEDS ORDERED: PROPOFOL VIAL IV ONE (06:46)
[2019-12-04] MEDS ORDERED: EPINEPHrine 1 MG/ML AMPUL ONE (06:46)
--- NOTE | 2019-12-04 07:23 | ANES ---
Anesthesia Pre Procedure Eval Vitals/Labs: Last Vital Signs Temp 36.7 C 12/04/19 06:33 Pulse 73 12/04/19 06:33 Resp 16 12/04/19 06:33 BP 148/116 H 12/04/19 06:33 Pulse Ox 96 12/04/19 06:33 HOME MEDICATIONS Citalopram Hydrobromide [Celexa] 10 mg PO HS 02/03/13 [Last Taken 10/20/18 21:00] Levothyroxine Sodium [Synthroid] 125 mcg PO DAILY 03/13/16 [Last Taken 07/31/18] Nitroglycerin [Nitrostat] 0.4 mg SL [id number] PRN 03/13/16 [Last Taken Unknown] cholecalciferol (vitamin D3) 250 mcg (10,000 unit) capsule 1,000 unit PO DAILY 03/07/18 [Last Taken 07/31/18] lorazepam 0.5 mg tablet 0.5 mg PO Q4H PRN 03/10/18 [Last Taken 10/20/18 21:00] Atorvastatin Calcium [Lipitor] 20 mg PO HS 07/29/18 [Last Taken 07/31/18] Metoprolol Succinate [Toprol Xl] 100 mg PO DAILY 07/29/18 [Last Taken 08/01/18] Calcium Carbonate [Calcium] 500 mg PO DAILY 08/01/18 [Last Taken Unknown] Multivitamin [One-Daily Multi-Vitamin] 1 ea PO DAILY 08/01/18 [Last Taken Unknown] nebulizer accessories See Dose Instructions .ROUTE .MEDSUPPLY #1 ea 10/20/18 [Last Taken Unknown] aspirin 81 mg tablet,delayed release 81 mg PO DAILY 08/31/19 [Last Taken Unknown] insulin glargine 100 unit/mL (3 mL) subcutaneous pen 30 unit SUBCUT DAILY ml 08/31/19 [Last Taken Unknown] pramipexole 0.125 mg tablet 0.25 mg PO BID tab 08/31/19 [Last Taken Unknown] Allergies/Adverse Reactions: Allergies Allergy/AdvReac Type Severity Reaction Status Date / Time levofloxacin [From Levaquin] AdvReac Severe Nausea Verified 08/31/19 11:23 simvastatin AdvReac Intermediate pain and Verified 08/31/19 11:23 cramping in legs codeine AdvReac Mild gi upset Verified 08/31/19 11:23 ciprofloxacin AdvReac Unknown unknown Verified 08/31/19 11:23 doxepin AdvReac Unknown unknown Verified 08/31/19 11:23 pioglitazone HCl [From Actos] AdvReac Unknown unknown Verified 08/31/19 11:23 - Planned Procedure Planned Procedure: Surgery/Post Op Medication List Reviewed:: Yes Allergies Verified: Yes Medical History (Last Reviewed 12/04/19 @ 07:10 by Shoaib Meehan CRNA) HTN (hypertension) (Chronic) COPD (chronic obstructive pulmonary disease) (Chronic) Depression (Chronic) HLD (hyperlipidemia) (Chronic) Asthma (Chronic) Diabetes mellitus (Chronic) Diverticulitis large intestine (Acute) Anxiety (Chronic) Back pain with radiation (Chronic) Diabetic acidosis, type II (Acute) Abdominal pain Onset Date: Unknown Arthritis Onset Date: Unknown Asthma Onset Date: Unknown Bronchitis Onset Date: Unknown COPD (chronic obstructive pulmonary disease) Onset Date: 06/02/10 mild- Dr. Donahue Chest pain Onset Date: Unknown Chondromalacia of patella Onset Date: 05/27/12 Cough Onset Date: Unknown Degenerative joint disease of knee Onset Date: 05/11/12 minimally symptomatic Depression Onset Date: Unknown Diabetes Disc disorder of lumbar region Onset Date: 05/11/12 possible radiculopathy Diverticulitis Onset Date: 07/11/18 Environmental allergies Onset Date: Unknown Fibromyalgia Onset Date: Unknown Frequent infections Onset Date: Unknown Gallstones Onset Date: Unknown Irregular bowel habits Onset Date: Unknown Irregular menstrual periods Onset Date: Unknown Knee pain, right Onset Date: ~2017 Measles Onset Date: Unknown Medial meniscus tear Onset Date: 05/24/12 Mumps Onset Date: Unknown Nervousness Onset Date: Unknown Partial tear of rotator cuff Onset Date: 09/13/12 rt Pes anserine bursitis Onset Date: ~2018 Pneumonia Onset Date: Unknown Sexual dysfunction Onset Date: Unknown Shortness of breath Onset Date: Unknown Stroke Onset Date: 02/2006 possible TIA Tetanus Onset Date: Unknown Trochanteric bursitis, unspecified hip Onset Date: 05/11/12 Ulcer Onset Date: Unknown Surgical History (Last Reviewed 12/04/19 @ 07:11 by Shoaib Meehan CRNA) Status post total left knee replacement (Acute) Status post total right knee replacement (Chronic) Basim 08/01/18 Cataract extraction status Onset Date: 12/26/12 Dr. Bob Coccygectomy Onset Date: 08/2015 H/O colonoscopy Onset Date: 2010 [id number] hyperplastic poly @ transerse colon @ benign hyperplastic polyp @ 30 cm/ 07-rectal polyp benign hyperplastic polyp & @ 20cm benign polypoid mucosal hyperplasia H/O: hysterectomy Onset Date: 07/1983 History of Bradley fundoplication Onset Date: 12/27/08 History of cholecystectomy Onset Date: 1966 History of esophagogastroduodenoscopy (EGD) Onset Date: 08/29/08 Dr. [id number] chronic inflammation- 07-benign gastric antrum mucosa,benign duodenum mucosa, benign colonic mucosa, 06-mild gastro reflux, benign gastroesophageal tissue, mild chronic antrum gastritis, mild chronic gastritis- also had EGD w/ bx in 11/23 & 10/23 Knee joint replacement status Onset Date: 04/20/16 left-Dr. Stallworth S/P epidural steroid injection Onset Date: 11/01/03 Shoaib Meehan S/P gastric surgery Onset Date: 09/2014 S/P left knee arthroscopy Onset Date: 06/06/12 tail bone removed History of total knee arthroplasty Onset Date: ~08/01/18 right: Dr. Stallowrth Family History (Last Reviewed 12/04/19 @ 07:11 by Shoaib Meehan CRNA) Father Suicide Mother Heart disease Sister DVT (deep venous thrombosis), Onset Age: 36 Brother Diabetes Heart disease two brothers with heart disease, one with transplant Sister Blood clotting disorder Lupus - Family Anesthesia History Family History:: no untoward family reactions to anesthesia, no familial bleeding tendencies, no family history of clotting disorders, no family history of premature - Airway/Neck/Teeth Denture Type: Full upper, Full lower Neck Exam: full range of motion Mallampatti Score: 2 Thyromental (T-M) distance: > 6 cm Mandibulo Hyoid distance: > 3 cm - Respiratory Respiratory History: COPD, sleep apnea Respiratory Physical: lungs clear Smoking Status: Former smoker - Quit 20 years Sleep Apnea currently treated: No Sleep Apnea by current assessment: No Discussed Risks/Treatment of NILS: Yes - Previous NILS treated, not current - Cardiovascular Cardiac History: angina, arrhythmia - PACs, hypertension Tolerate Activity: Fair Heart Sounds: S1 & S2, Regular - Gastrointestinal NPO since: 2399 - Anesthesia Assessment and Plan ASA Class: PS, III Anesthesia Type Plan: Block - Adductor canal for post op pain relief, Spinal
[2019-12-04] MEDS: RINGER'S SOLUTION,LACTATED 1,000 ML IV PRN ×4 (07:29→20:16)
[2019-12-04] MEDS ORDERED: diphenhydrAMINE HCL 50 MG/ML VIAL IV PRN (10:54)
[2019-12-04] MEDS ORDERED: ZOLPIDEM TARTRATE 5 MG TABLET PO PRN (10:54)
[2019-12-04] MEDS ORDERED: MAG HYDROX/ALUMINUM HYD/SIMETH 30 ML UDC PO PRN (10:54)
[2019-12-04] MEDS ORDERED: ACETAMINOPHEN 500 MG TABLET PO PRN (10:54)
--- NOTE | 2019-12-04 10:54 | OR ---
Operative Report - Dictated Report Narrative: DATE OF PROCEDURE: 12/04/2019 PHYSICIAN: Arnold Stallworth MD [employer]CHO[employer]GE LEAD TEACHER: Heath Herrera MD (provided an educated set of skilled hands that consisted with transfer, positioning, prepping, draping, traction, manipulation, irrigation, placement of implants, placement of instruments, closure of wounds, application of dressings, all of which could not be performed by the available surgical crew). PREOPERATIVE DIAGNOSIS: Idiopathic pain status post right total knee arthroplast y POSTOPERATIVE DIAGNOSIS: Idiopathic pain status post right total knee arthroplasty OPERATIONS AND PROCEDURES: Revision right total knee arthroplasty ANESTHESIA: Spinal plus regional plus periarticular local. ESTIMATED BLOOD LOSS: Minimal TOURNIQUET TIME: 120 minutes at 325 mmHg. SPECIMENS: Implants for disposal, tissue for acute inflammation, culture x1. COMPLICATIONS: None. RETAINED IMPLANTS: DePuy Attune revision CRS size 5 right femur cemented, 4 mm distal medial augment, 4 mm posterior medial, and posterior lateral augments attune revision press-fit stem 12 x 60 mm, attune revision porocoat fully coated femoral sleeve 30 mm, size 3 revision tibial baseplate rotating platform, revision tibial sleeve Porocoat fully coated 29 mm, revision press-fit stem 12 mm x 110 mm, CRS revision rotating platform insert size 5 x 14 mm crosslinked polyethylene. INDICATIONS FOR PROCEDURE: Mrs. Ansari is a 74-year-old female who underwent a posterior stabilized fixed-bearing cemented total knee arthroplasty in the past. She was doing well however she had persistent pain and difficulties with ambulation. She had an extensive work-up which ruled out infection as well as gross loosening but had persistent unrelenting discomfort and she wished to proceed with surgical intervention of revision arthroplasty. She had an aspirate, which was negative for infection and had x-rays that showed no signs of implant loosening, and no gross signs of instability. Options for treatment were discussed including bracing, observation, and surgical revision. She wished to proceed with revision. The risks, benefits, and alternatives were discussed in clinic. The risk of , blood clots, bleeding, infection, nerve/tendon/blood vessel injury, malposition of implants, persistent pain, failure of implants, loosening, stiffness, need for additional procedures, and she wished to proceed. Consent was obtained in the clinic. PROCEDURE: After marking the correct extremity in the preoperative holding area, the patient was taken to the operating room. A timeout was performed. IV antibiotics consisting of Ancef was administered prior to procedure. A regional followed by spinal anesthetic was induced at my request by anesthesia. A Valadez catheter was placed and a bump was placed under the right buttock. A well- padded tourniquet was applied to the left thigh. Right leg was then prepped and draped in standard sterile fashion. She was noted to have range of motion was approximately 0 to 105 of flexion. After prepping and draping the leg in standard sterile fashion, exsanguinating the extremity and inflating the tourniquet to 325 mmHg, the previous incision was utilized. Sharp dissection was carried through the skin. There were no retained nonabsorbable sutures. The medial retinaculum was marked out and a paramedial arthrotomy was made. There was a mild effusion, but no gross signs of purulence or infectious appearing tissues. A partial synovectomy was perfo rmed. The scar tissue was excised. The gutters were cleaned, and the previous polyethylene was excised. The knee was hyperflexed and attention was turned to the femur. A series of osteotomes were utilized in order to disengage the cement bone implant interface, removing the femoral component. Again, this was a cruciate retaining implant. We then turned our attention to the tibia. A series of osteotomes and saw was utilized in order to free the tissue to best of our abilities. The tibia was then removed. The implants revealed no signs of significant wear or damage. We then proceeded to prepare the tibia. The entry reamer up to a size 12 tibial reamer was utilized in order to repair the tibial canal. An entry reamer for the implant as well as a 29mm broach was utilized which gave good stability with good fill of the proximal tibial metaphysis. The proximal tibia was then cleaned and cut in order to provide a flat surface. The trial tray size 3 was then impacted with the trial sleeve and this was secured with a punch. Once it was felt that we prepared the tibia, we turned our attention to the femur. A series of reamers were utilized in order to open up the femoral canal up to a size 12. The femoral sleeve with broach was utilized up to a size 30mm. A clean-up distal cut was made, followed by the 3-in-1 cutting block, which was placed under tension in both flexion and extension in order to make sure that we had a symmetrical box. This was pinned in slight external rotation. Clean-up cuts were then made for augment,4 mm distal medial and 4 mm posterior medial and lateral. The trial components were assembled and impacted for trial. A series of inserts were utilized up to a size 14, which gave good stability in flexion and was able to reach maximal extension without hyperextension, stable to varus and valgus stressing as well as drawer. The patella tracked appropriately and overall, it was felt these were the appropriate implants. The implants were removed. The tissue was thoroughly irrigated with pulsatile saline irrigation. Prior to this, the tissue was sent to pathology for acute inflammation, was noted to have less than 5 neutrophils per high-powered field, and culture was also obtained and sent to pathology. Once the bone was thoroughly irrigated and dried, a periarticular joint injection of ropivacaine, Toradol, and epinephrine was placed. The cement was vacuum mixed per radio repair teacher's instructions. The implants were assembled on the back table, and cement was placed on the appropriate surfaces, avoiding any cement on the ingrown surface or the stems, and the implants were then impacted. Once the cement was fully cured, the extruded cement was removed. The final polyethylene insert was placed. The knee was again placed through range of motion and was able to reach full extension, flexion 115 degrees limited by the soft tissues in the back of the knee with appropriate tracking of the patella, and no instability. A drain was placed exiting superolaterally. The tourniquet was deflated. Hemostasis was obtained. Capsule was closed with interrupted #1 Vicryl. The deep tissues with 0 Vicryl, subcutaneous tissue with 3-0 Vicryl and 3-0 Monocryl, and the skin with a Dermabond dressing. A 4 x 4s, Sof-Rol and a full leg Jerome was applied and the patient was awoken and transferred to postanesthesia care unit in stable condition. All sponge, needle, and instrument counts were correct prior to closing the wounds.
[2019-12-04] MEDS ORDERED: LORazepam 0.5 MG TABLET PO PRN (10:57)
[2019-12-04] MEDS ORDERED: NITROGLYCERIN 0.4 MG/TAB BTL SL PRN (10:57)
--- NOTE | 2019-12-04 11:06 | ANES ---
Post Anesthesia Discharge - Transfer of Care Transfer of Care handoff given to nurse: Yes - Discharge from PACU Discharge from PACU when meets criteria: Yes - Alert and comfortable.
--- NOTE | 2019-12-04 11:07 | ANES ---
Anesthesia Procedure Note Procedure Note: ANESTHESIA PROCEDURE NOTE Date of Procedure: 12/04/2019 Time of procedure: 7:55 AM. Performed by: MAYRA Ramos CRNA, MSN Stock Parts Inspector: Farzana Morrison RN. Preprocedure diagnosis: Post knee surgery pain. Post procedure diagnosis: Same. Procedure: Right adductor Canal Block. Indications: Post right pain relief. Findings: See below. Details of the procedure: The patient was brought to OR #4 and placed in supine position. The patient's right femoral area to the knee was prepped with ch lorhexidine and using ultrasound guidance the right femoral artery and nerve was identified and then followed to the level of the adductor canal. Lidocaine 1% was infiltrated to the skin of the intended injection site. Under ultrasound guidance the saphenous nerve was approached with visualization of a 4 inch shielded block needle. Once saphenous nerve was identified with proximity to the needle tip, the saphenous nerve was surrounded with 20 mL bupivacaine 0.5% with 1-200,000 epinephrine. Please see radiology/ultrasound report for details and retained images of the procedure. EBL: 0 Fluids: N/A. Specimen: N/A. Post procedure condition: The patient tolerated the procedure well. No complications were noted. Thank you for this consultation. Shoaib Meehan CRNA, ARNP, MSN
[2019-12-04] MEDS: KETOROLAC TROMETHAMINE 15 MG/ML VIAL IV SCH ×2 (11:33→16:59)
--- NOTE | 2019-12-04 11:35 | ANES ---
Post Anesthesia Assessment - Vital Signs Vitals: Last Vital Signs Temp 36.5 C 12/04/19 11:20 Pulse 67 12/04/19 11:20 Resp 16 12/04/19 11:20 BP 128/60 12/04/19 11:20 Pulse Ox 96 12/04/19 11:20 Airway Patency: Normal - Mental Status Level Of Consciousness: Awake, Alert, Appropriate - Pain Level Pain Score: 0 - N/V Assessment Nausea/Vomiting Presence: None Dehydration:: No
[2019-12-04] MEDS: oxyCODONE HCL/ACETAMINOPHEN 1 TAB TABLET PO PRN ×2 (12:48→16:51)
[2019-12-04] MEDS: ceFAZolin SODIUM 1 GM in DEXTROSE 5 % IN WATER 100 ML IV SCH ×4 (12:49→18:26)
[2019-12-04] MEDS: ONDANSETRON HCL/PF 2 MG/ML VIAL IV PRN (13:52)
[2019-12-04] MEDS: CITALOPRAM HYDROBROMIDE 10 MG TABLET PO SCH (20:10)
[2019-12-04] MEDS: ROSUVASTATIN CALCIUM 10 MG TABLET PO SCH (20:10)
[2019-12-04] MEDS: SENNOSIDES/DOCUSATE SODIUM 1 TAB TABLET PO SCH (20:10)
[2019-12-04] MEDS: PRAMIPEXOLE DI-HCL 0.5 MG TABLET PO SCH (20:10)
[2019-12-04] MEDS ORDERED: MORPHINE SULFATE 15 MG TABLET.SA PO SCH (21:00)
[2019-12-05] MEDS: ceFAZolin SODIUM 1 GM in DEXTROSE 5 % IN WATER 100 ML IV SCH ×2 (00:15)
[2019-12-05] MEDS: KETOROLAC TROMETHAMINE 15 MG/ML VIAL IV SCH ×2 (00:15→05:21)
[2019-12-05] MEDS: ONDANSETRON HCL/PF 2 MG/ML VIAL IV PRN ×4 (01:27→20:34)
[2019-12-05] MEDS: RINGER'S SOLUTION,LACTATED 1,000 ML IV PRN ×3 (04:20→20:30)
[2019-12-05 06:29] LABS: Hematocrit 36.7 % (37.0-47.0); Hemoglobin 11.3 gm/dL (12.5-16.0); Mean Cell Volume 94.6 fl (78-100); Mean Corpuscular Hemoglobin 29.1 pg (27-31); Mean Corpuscular Hgb Conc 30.8 g/dl (32-36); Mean Platelet Volume 11.3 fl (8-12.5); Platelet Count 214 K/mm3 (150-450); Red Blood Count 3.88 M/mm3 (4.2-5.4); Red Cell Distribution Width 13.9 % (11.5-14.0); White Blood Count 9.9 K/mm3 (4.0-10.5)
[2019-12-05 06:40] LABS: Anion Gap 10.8 mmol/L (6.8-13.8); BUN/Creatinine Ratio 14.4 (9.0-21.6); Calcium * 8.1 mg/dL (7.9-10.9); Carbon Dioxide 28.5 mmol/L (24-32.6); Estimated Creat Clear 19.7; Potassium 5.3 mmol/L (3.4-4.6)
--- NOTE | 2019-12-05 08:00 | PN ---
Subjective - Date and Time Seen Date: 12/05/19 Time: 07:54 Subjective Narrative: Complains of nausea. Has had Percocet before and done fine. Pain controlled. Walked to room door the morning. No other complaints. Objective Objective Narrative: Bandages C/D/I. N/V intact. 10/23 PF/DF ankle RLE. Calf supple. Drain intact with minimal drainage. Patient currently up in chair. Alert and oriented. Vitals and labs reviewed. - Vitals Vitals: Last Vital Signs Temp 35.0 C L 12/05/19 06:54 Pulse 69 12/05/19 06:54 Resp 18 12/05/19 06:54 BP 134/57 12/05/19 06:54 Pulse Ox 97 12/05/19 06:54 - Abnormal Lab Findings Abnormal Lab Findings: Abnormal Lab Results 12/05/19 12/05/19 Range/Units 06:05 06:05 RBC 3.88 L (4.2-5.4) M/mm3 Hgb 11.3 L (12.5-16.0) gm/dL Hct 36.7 L (37.0-47.0) % MCHC 30.8 L (32-36) g/dl Potassium 5.3 H D (3.4-4.6) mmol/L BUN 29 H (3-23) mg/dL Creatinine 2.01 H D (0.4-1.4) mg/dL Est GFR (Non-Af Amer) 26 L D (60-130) mL/min Random Glucose 207 H (70-110) mg/dL - Exam Constitutional: Present: Alert, Oriented x3, Cooperative, No distress Cauti Physician Documentation - Urinary Catheter Management 2-way Urethral Date of Insertion: 12/04/19 Time of Insertion: 08:10 Date of Removal: 12/05/19 Time of Removal: 07:30 Assessment/Plan - Problems/Diagnosis (1) Status post revision of total replacement of right knee Problem: Acute Narrative: PT, anticoagulation, switch Percocet to Morphine IR to see if nausea improves (2) Anemia Problem: Acute Narrative: asymptomatic, observation (3) Renal insufficiency Problem: Acute Narrative: stop Toradol (4) HTN (hypertension) Problem: Chronic Qualifiers: (5) Depression Problem: Chronic (6) HLD (hyperlipidemia) Problem: Chronic (7) Diabetic acidosis, type II Problem: Acute
[2019-12-05] MEDS: LEVOTHYROXINE SODIUM 125 MCG TABLET PO SCH (09:08)
[2019-12-05] MEDS: METOPROLOL SUCCINATE 100 MG TABLET.SA PO SCH (09:08)
[2019-12-05] MEDS: CHOLECALCIFEROL 1,000 UNIT CAPSULE PO SCH (09:11)
[2019-12-05] MEDS: MULTIVITAMINS 1 CAP CAPSULE PO SCH (09:11)
[2019-12-05] MEDS: CALCIUM CARBONATE 500 MG TAB.CHEW PO SCH (09:11)
[2019-12-05] MEDS: PRAMIPEXOLE DI-HCL 0.5 MG TABLET PO SCH ×3 (09:17→21:58)
[2019-12-05] MEDS: ENOXAPARIN SODIUM 40 MG/0.4 ML SYRG SC SCH (09:24)
[2019-12-05] MEDS: INSULIN GLARGINE,HUM.REC.ANLOG 100 UNITS/ML VIAL SC SCH (09:26)
[2019-12-05] MEDS: MORPHINE SULFATE 10 MG/0.5 ML SYRINGE PO PRN ×3 (10:50→20:31)
[2019-12-05] MEDS: ROSUVASTATIN CALCIUM 10 MG TABLET PO SCH (20:23)
[2019-12-05] MEDS: SENNOSIDES/DOCUSATE SODIUM 1 TAB TABLET PO SCH (20:24)
[2019-12-05] MEDS: CITALOPRAM HYDROBROMIDE 10 MG TABLET PO SCH (20:24)
[2019-12-05] MEDS: MAGNESIUM HYDROXIDE 30 ML UDC PO PRN (21:58)
[2019-12-06] MEDS: RINGER'S SOLUTION,LACTATED 1,000 ML IV PRN (04:47)
[2019-12-06] MEDS: ONDANSETRON HCL/PF 2 MG/ML VIAL IV PRN ×2 (04:48→12:21)
[2019-12-06] MEDS: MORPHINE SULFATE 10 MG/0.5 ML SYRINGE PO PRN (04:51)
[2019-12-06] MEDS: LEVOTHYROXINE SODIUM 125 MCG TABLET PO SCH (07:15)
[2019-12-06 07:17] LABS: BUN/Creatinine Ratio 18.9 (9.0-21.6); Calcium * 8.2 mg/dL (7.9-10.9); Estimated Creat Clear 26.8
[2019-12-06] MEDS ORDERED: MORPHINE SULFATE 10 MG/0.5 ML SYRINGE PO PRN (10:48)
--- NOTE | 2019-12-06 10:49 | PN ---
Subjective - Date and Time Seen Date: 12/06/19 Time: 09:00 Subjective Narrative: Patient reports main complaint of anxiety this morning. She did recently get an Ativan. She did not get up with therapy earlier due to the anxiety. She reports pain is moderately controlled. Nausea has improved some. Is concerned about not having a bowel movement yet. Objective Objective Narrative: Patient is up in chair. She is tearful. She is accompanied by her . Pernio dressing intact with no active drainage at this time. She is able to plantarflex and dorsiflex her right ankle. She reports sensation intact. Labs reviewed do show an improvement in her creatinine. Vital signs are stable. She is satting around 95% on room air. - Vitals Vitals: Last Vital Signs Temp 36.5 C 12/06/19 07:15 Pulse 71 12/06/19 07:15 Resp 17 12/06/19 07:15 BP 140/68 12/06/19 07:15 Pulse Ox 95 12/06/19 07:15 - Abnormal Lab Findings Abnormal Lab Findings: Abnormal Lab Results 12/06/19 Range/Units 06:55 Potassium 5.0 H (3.4-4.6) mmol/L BUN 28 H (3-23) mg/dL Creatinine 1.48 H D (0.4-1.4) mg/dL Est GFR (Non-Af Amer) 37 L D (60-130) mL/min Random Glucose 117 H D (70-110) mg/dL - Exam Constitutional: Present: Alert, Oriented x3, Cooperative, No distress Cauti Physician Documentation - Urinary Catheter Management 2-way Urethral Date of Insertion: 12/04/19 Time of Insertion: 08:10 Date of Removal: 12/05/19 Time of Removal: 07:30 Assessment/Plan - Problems/Diagnosis (1) Status post revision of total replacement of right knee Problem: Acute Narrative: PT-encourage patient to work with therapy as getting up and moving around may help some of her anxiety., anticoagulation, discussed with nursing giving her medications for the constipation. Her morphine be increased. (2) Anemia Problem: Acute Narrative: Asymptomatic (3) HTN (hypertension) Problem: Chronic Qualifiers: (4) Depression Problem: Chronic (5) HLD (hyperlipidemia) Problem: Chronic (6) Diabetic acidosis, type II Problem: Acute (7) Acute kidney injury Problem: Acute Narrative: Patient's creatinine has improved from her acute kidney injury. Encouraged fluids. Will re-check BMP in the morning.
[2019-12-06] MEDS: ENOXAPARIN SODIUM 40 MG/0.4 ML SYRG SC SCH (11:01)
[2019-12-06] MEDS: METOPROLOL SUCCINATE 100 MG TABLET.SA PO SCH (11:01)
[2019-12-06] MEDS: MULTIVITAMINS 1 CAP CAPSULE PO SCH (11:01)
[2019-12-06] MEDS: CALCIUM CARBONATE 500 MG TAB.CHEW PO SCH (11:01)
[2019-12-06] MEDS: INSULIN GLARGINE,HUM.REC.ANLOG 100 UNITS/ML VIAL SC SCH (11:02)
[2019-12-06] MEDS: CHOLECALCIFEROL 1,000 UNIT CAPSULE PO SCH (11:02)
[2019-12-06] MEDS: MAGNESIUM HYDROXIDE 30 ML UDC PO PRN (17:31)
[2019-12-06] MEDS: PRAMIPEXOLE DI-HCL 0.5 MG TABLET PO SCH ×2 (17:31→21:57)
[2019-12-06] MEDS: ONDANSETRON 4 MG TAB.RAPDIS PO PRN ×2 (19:08→23:47)
[2019-12-06] MEDS: CITALOPRAM HYDROBROMIDE 10 MG TABLET PO SCH (20:12)
[2019-12-06] MEDS: ROSUVASTATIN CALCIUM 10 MG TABLET PO SCH (20:12)
[2019-12-06] MEDS: SENNOSIDES/DOCUSATE SODIUM 1 TAB TABLET PO SCH (20:12)
[2019-12-07] MEDS: LEVOTHYROXINE SODIUM 125 MCG TABLET PO SCH (07:20)
[2019-12-07 07:34] LABS: Anion Gap 7.2 mmol/L (6.8-13.8); BUN/Creatinine Ratio 22.9 (9.0-21.6); Calcium * 8.4 mg/dL (7.9-10.9); Carbon Dioxide 29.5 mmol/L (24-32.6); Estimated Creat Clear 27.5; Potassium 4.7 mmol/L (3.4-4.6)
[2019-12-07] MEDS: METOPROLOL SUCCINATE 100 MG TABLET.SA PO SCH (10:25)
[2019-12-07] MEDS: CALCIUM CARBONATE 500 MG TAB.CHEW PO SCH (10:25)
[2019-12-07] MEDS: MULTIVITAMINS 1 CAP CAPSULE PO SCH (10:25)
[2019-12-07] MEDS: CHOLECALCIFEROL 1,000 UNIT CAPSULE PO SCH (10:25)
[2019-12-07] MEDS: ENOXAPARIN SODIUM 40 MG/0.4 ML SYRG SC SCH (10:25)
[2019-12-07] MEDS: INSULIN GLARGINE,HUM.REC.ANLOG 100 UNITS/ML VIAL SC SCH ×2 (10:33→14:59)
--- NOTE | 2019-12-07 12:19 | DS ---
(1) Acute blood loss anemia Problem: Acute (2) Acute kidney injury Problem: Acute (3) Status post revision of total replacement of right knee Problem: Acute (4) Anxiety Problem: Chronic (5) Asthma Problem: Chronic (6) COPD (chronic obstructive pulmonary disease) Problem: Chronic (7) Depression Problem: Chronic (8) Diabetes mellitus Problem: Chronic Qualifiers: Diabetes mellitus type: type 2 (9) HLD (hyperlipidemia) Problem: Chronic (10) HTN (hypertension) Problem: Chronic Qualifiers: Date of Discharge:: 12/07/19 Hospital Course: Mrs. Ansari was admitted to the floor after undergoing right revision total knee arthroplasty. Tolerated this well. Was admitted to the floor postoperatively for 24 hours of IV antibiotics, pain control, medical management, and occupational and physical therapy. OT and PT were consulted to assist with activities of daily living and ambulation. Was made weightbearing as tolerated with range of motion as tolerated. Pain was initially controlled with IV regimen. This was transitioned to oral once tolerating a by mouth intake. She did have some nausea and issues with the initial pain medications however after changing these this improved. Was resumed on home diet and medications. A Valadez catheter was inserted in the operating room which was discontinued by postoperative day 1. A drain was placed intraoperatively into the knee which was discontinued on postoperative day 1. Lovenox, SCDs, and HAROLDO hose were utilized for DVT prophylaxis. Vital signs remained stable to the hospital course. Labs were obtained which showed a final hemoglobin of 11.3 grams. Pre- op hemoglobin was 13.9. She was asymptomic and thus the acute blood loss anemia will be monitored and treated clinically. BMP was reviewed and was noted to demonstrate acute kidney injury. Her creatinine improved with IV and oral fluids and discontinuing renal insulting medications as well as observation. Physical examination throughout the hospital course showed an extremity that had sensation that was intact to light touch, palpable pulses, a benign wound, motor intact to the toes, ankle, and knee. Knee range of motion was approximately 5 degrees to 60 degrees. Once an oral pain regimen was tolerated and physical therapy goals were met, it was felt that they were stable for discharge to home. Instructions: Continue with weightbearing as tolerated and range of motion as tolerated. It is okay to shower and get the wound wet as long as there is no drainage from the wound. Do not bathe or soak the wound. If there is any drainage from the wound keep the wound clean and dry and cover with dry gauze and tape. Change every 2- 3 days as needed if there is any drainage. Cover wound while showering if there is any drainage. Continue with physical therapy. Resume home diet. Report any fever over 101.5 Fahrenheit, uncontrolled pain, increased drainage, foul odor of drainage, new or increased calf pain or shortness of breath, or any other significant complaints. A 325mg daily aspirin will be started after finishing anticoagulation. Continue with HAROLDO hose on the operative extremity until instructed otherwise. No driving until instructed otherwise. Follow up in approximately 2-3 weeks. Procedures Performed: see notes below List Procedures: Revision right total knee arthroplasty Results and Findings: Lab Pending Results 12/05/19 06:05: WBC 9.9, RBC 3.88 L, Hgb 11.3 L, Hct 36.7 L, MCV 94.6, MCH 29.1, MCHC 30.8 L, RDW 13.9, Plt Count 214, MPV 11.3 12/05/19 06:05: Sodium 135, Plasma Sodium 137, Potassium 5.3 H D, Chloride 101, Carbon Dioxide 28.5, Anion Gap 10.8, BUN 29 H, Creatinine 2.01 H D, Est GFR (Non-Af Amer) 26 L D, BUN/Creatinine Ratio 14.4, Random Glucose 207 H, Calcium 8.1 12/06/19 06:55: Sodium 132, Plasma Sodium 132, Potassium 5.0 H, Chloride 101, Carbon Dioxide 28.0, Anion Gap 8.0, BUN 28 H, Creatinine 1.48 H D, Est GFR (Non- Af Amer) 37 L D, BUN/Creatinine Ratio 18.9, Random Glucose 117 H D, Calcium 8.2 12/07/19 07:25: Sodium 132, Plasma Sodium 131, Potassium 4.7 H, Chloride 100, Carbon Dioxide 29.5, Anion Gap 7.2, BUN 33 H, Creatinine 1.44 H, Est GFR (Non-Af Amer) 38 L, BUN/Creatinine Ratio 22.9 H, Random Glucose 54 L D, Calcium 8.4 Disposition: Home self-care Condition: Good Discharge Activity: Activity as tolerated, Weight bearing Discharge Diet: Consistent carbs Referrals: Shahrzad Devries, [employer]NAGER [Primary Care Provider] - Additional Patient Instructions (free text): [facility] Physical Therapy appointment WednesdayDecember 07 at 10:45am. Follow up Office Orthopedic appointment on WednesdayDecember 18 at 9:45am. Prescriptions (Any new or edited meds): Enoxaparin Sodium [Lovenox] 40 mg SC Q24H #7 disp.syrin Transmission Status: Pending to [facility] Morphine Sulfate 1 - 2 tab PO Q4H PRN #40 tab PRN Reason: Pain Transmission Status: Sent to [facility] Sennosides/Docusate Sodium [Senokot-S] 2 tab PO HS #60 tab Transmission Status: Pending to [facility] Ondansetron [Zofran Odt] 4 mg PO Q4H PRN #20 tab.rapdis PRN Reason: Nausea And Vomiting Transmission Status: Pending to [facility] Complete Home Medications List: Complete Home Medication List: Citalopram Hydrobromide [Celexa] 10 mg PO HS 02/03/13 Levothyroxine Sodium [Synthroid] 125 mcg PO DAILY 03/13/16 Nitroglycerin [Nitrostat] 0.4 mg SL [id number] PRN 03/13/16 cholecalciferol (vitamin D3) 250 mcg (10,000 unit) capsule 1,000 unit PO DAILY 03/07/18 lorazepam 0.5 mg tablet 0.5 mg PO Q4H PRN 03/10/18 Atorvastatin Calcium [Lipitor] 20 mg PO HS 07/29/18 Metoprolol Succinate [Toprol Xl] 100 mg PO DAILY 07/29/18 Calcium Carbonate [Calcium] 500 mg PO DAILY 08/01/18 Multivitamin [One-Daily Multi-Vitamin] 1 ea PO DAILY 08/01/18 nebulizer accessories See Dose Instructions .ROUTE .MEDSUPPLY #1 ea 10/20/18 insulin glargine 100 unit/mL (3 mL) subcutaneous pen 38 unit SUBCUT DAILY ml 08/31/19 pramipexole 0.125 mg tablet 0.25 mg PO BID tab 08/31/19 Enoxaparin Sodium [Lovenox] 40 mg SC Q24H #7 disp.syrin 12/07/19 Morphine Sulfate 1 - 2 tab PO Q4H PRN #40 tab 12/07/19 Ondansetron [Zofran Odt] 4 mg PO Q4H PRN #20 tab.rapdis 12/07/19 Sennosides/Docusate Sodium [Senokot-S] 2 tab PO HS #60 tab 12/07/19 Amb Orders for Discharge: PT Evaluation and Treatment* Facility: [facility], Location: Rehabilitation Services Forms: Patient Portal Registration
[2019-12-07] MEDS ORDERED: MAGNESIUM CITRATE 300 ML BTL PO ONE (14:24)
[2019-12-07] MEDS: MAGNESIUM HYDROXIDE 30 ML UDC PO PRN (14:25)
[2019-12-07] MEDS: ONDANSETRON 4 MG TAB.RAPDIS PO PRN (15:32)
[2019-12-07 18:12] VITALS: BP 167/65
== END 2019-12-07 18:37 | disposition home health service (06) | DRG 467 ==
LOC: MS 06:30
PROVIDERS: ADMIT Orthopaedic Surgery; ATTEND Orthopaedic Surgery
DX: E03.9 Hypothyroidism, unspecified; E78.5 Hyperlipidemia, unspecified; N28.9 Disorder of kidney and ureter, unspecified; E11.9 Type 2 diabetes mellitus without complications; I10 Essential (primary) hypertension; N17.9 Acute kidney failure, unspecified; T84.84XA Pain due to internal orthopedic prosthetic devices, implants and grafts, initial encounter; D62 Acute posthemorrhagic anemia; M25.561 Pain in right knee; F32.9 Major depressive disorder, single episode, unspecified; F41.8 Other specified anxiety disorders
CPT/HCPCS: 36415; 73560; 80048; 85027; 87070; 88305; 88331; 97110; 97116; 97161; 97165; J2405